=== PATIENT | female | born 1970 | race American Indian/Alaskan Native ===

== ENCOUNTER 2021-12-03 16:32 | Outpatient (CLI) | payer OTHER, SELFPAY ==
--- NOTE | ~2021-12-03 | MM_ITS ---
EXAMINATION: MM screening skyla BI w gomez HISTORY: Screening TECHNIQUE: Craniocaudal and mediolateral oblique 3-D tomosynthesis images were obtained and synthetic 2-D images were generated. CAD analysis was submitted and interpreted. COMPARISON: No prior mammogram is available for comparison at this institution. BREAST PARENCHYMAL COMPOSITION: The breasts are heterogeneously dense, which may obscure small masses . FINDINGS: There is no evidence of suspicious mass, calcification, or architectural distortion to sugg est malignancy in either breast. There has been no suspicious interval change. IMPRESSION: 1. No mammographic evidence of malignancy. 2. Recommend routine screening mammography in one year. BI-RADS Category 1: Negative Reviewed, dictated and finalized at location A.
== END 2021-12-03 16:33 | disposition home or self-care (01) ==
LOC: ANHIMG 16:35
PROVIDERS: PCP Internal Medicine Infectious Disease; Visit Provider Obstetrics & Gynecology
DX: Z12.31 Encounter for screening mammogram for malignant neoplasm of breast (principal)
CPT/HCPCS: 77063; 77067

== ENCOUNTER 2022-12-31 16:30 | Outpatient (CLI) | payer OTHER, SELFPAY ==
--- NOTE | ~2022-12-31 | MM_ITS ---
EXAMINATION: MM screening skyla BI w gomez HISTORY: Screening mammogram TECHNIQUE: Craniocaudal and mediolateral oblique 3-D tomosynthesis images were obtained and synthetic 2-D images were generated. CAD analysis was submitted and interpreted. COMPARISON: 12/03/2021 BREAST PARENCHYMAL COMPOSITION: There are scattered areas of fibroglandular density. FINDINGS: No suspicious mass, calcification, or architectural distortion are identified in either aniket ast to suggest malignancy. There has been no suspicious interval change. IMPRESSION: 1. No mammographic evidence of malignancy. 2. Recommend routine screening mammography in one year. BI-RADS Category 1: Negative Reviewed, dictated and finalized at location A.
== END 2022-12-31 16:31 | disposition home or self-care (01) ==
LOC: ANHIMG 16:34
PROVIDERS: PCP Internal Medicine Infectious Disease; Visit Provider Obstetrics & Gynecology
DX: Z12.31 Encounter for screening mammogram for malignant neoplasm of breast (principal)
CPT/HCPCS: 77063; 77067

== ENCOUNTER 2024-02-24 15:07 | Outpatient (CLI) | payer OTHER, SELFPAY ==
--- NOTE | ~2024-02-24 | MM_ITS ---
EXAMINATION: MM screening skyla BI w gomez HISTORY: Screening mammogram TECHNIQUE: Craniocaudal and mediolateral oblique 3-D tomosynthesis images were obtained and synthetic 2-D images were generated. CAD analysis was submitted and interpreted. COMPARISON: 12/31/2022, 12/03/2021 BREAST PARENCHYMAL COMPOSITION:Not Dense. There are scattered areas of fibroglandular density. FINDINGS: No suspicious mass, calcification, or architectural distortion are identified in either aniket ast to suggest malignancy. There has been no suspicious interval change. IMPRESSION: No mammographic evidence of malignancy. Recommend routine screening mammography in one year. BI-RADS Category 1: Negative Reviewed, dictated and finalized at location .
== END 2024-02-24 15:08 | disposition home or self-care (01) ==
PROVIDERS: PCP Internal Medicine Infectious Disease; Visit Provider Nurse Practitioner
DX: Z12.31 Encounter for screening mammogram for malignant neoplasm of breast (principal)
CPT/HCPCS: 77063; 77067

== ENCOUNTER 2025-02-26 15:39 | Outpatient (CLI) | payer OTHER, SELFPAY ==
--- NOTE | ~2025-02-26 | MM_ITS ---
EXAMINATION: MM screening skyla BI w gomez HISTORY: Screening mammogram TECHNIQUE: Craniocaudal and mediolateral oblique 3-D tomosynthesis images were obtained and synthetic 2-D images were generated. CAD analysis was submitted and interpreted. COMPARISON: 02/24/2024, 12/31/2022, 12/03/2021 BREAST PARENCHYMAL COMPOSITION:Not Dense. There are scattered areas of fibroglandular density. FINDINGS: No suspicious mass, calcification, or architectural distortion are identified in either aniket ast to suggest malignancy. There has been no suspicious interval change. IMPRESSION: No mammographic evidence of malignancy. Recommend routine screening mammography in one year. BI-RADS Category 1: Negative Reviewed, dictated and finalized at location .
--- OUTSIDE RECORDS SUMMARY | 2025-02-26 15:43 | XMS_ITS | Clinical Summary ---
Author Organization [facility] Address [address] [place] [id number] Care Team Providers Care Confectionery Laboratory Manager Name Role Phone Kev Brown MD Primary Care Provider [phone] Social History Tobacco Use Types Packs/Day Years Used Date Smoking Tobacco: Never Assessed Comments Unknown Sex and Gender Information Value Date Recorded Sex Assigned at Not on file Legal Sex Female 7:37 PM CDT Gender Identity Not on file Sexual Orientation Not on file Plan of Treatment Health Maintenance Due Date Last Done Comments Cervical Cancer Screening Pa p Smear (Age 30 to 64) Every 3 Years 1971 Colorectal Cancer Screening Colonoscopy (10 Years) 1971 Annual Physical 1974 Hepatitis C 1989 DTaP, Tdap and Td Vaccines ( 1 - Tdap) 1990 Hepatitis B Vaccines (1 of 3 - 19+ 3-dose series) 1990 Cervical Cancer Screening Pa p with HPV Testing (Age 30 to 64) Every 5 Years 2001 Cervical Cancer Screening with HPV 2001 Mammogram Screening 08/18/2019 08/18/2017 Pneumococcal Vaccine: 50+ Ye ars (1 of 1 - PCV) 2021 Zoster Vaccines (1 of 2) 2021 COVID-19 Vaccine ( - 2023-2 5 season) 2024 Meningococcal B Vaccine Aged Out No l onger eligible based on patient's age to complete this topic Meningococcal Vaccine Aged Out No manoj santos eligible based on patient's age to complete this topic RSV Immunizations Under 20 Months Aged Out No longer eligible based on patient's age to complete this topic Procedures Procedure Name Priority Date/Time Associated Diagnosis Comments MG SCREENING RAYSHAWN DIGI Routine 08/18/2017 5:45 PM DESIGN ASSEMBLER Screening breast examination from Last 3 Months or Most Recently Relevant to Health Maintenance Results * MG SCREENING RAYSHAWN DIGI (08/18/2017 5:45 PM DESIGN ASSEMBLER) Anatomical Region Laterality Modality Breast Bilateral Mammography 08/18/2017 9:33 PM DESIGN ASSEMBLER Impressions 08/18/2017 9:34 PM DESIGN ASSEMBLER =====IMPRESSION:===== No mammographic findings suggestive of malignancy. ASSESSMENT: ACR BI-RADS Category 2 - Benign. RECOMMENDATION: 1: Routine screening mammogram bilateral in 1 year COMMENTS: Narrative 08/18/2017 9:34 PM DESIGN ASSEMBLER EXAMINATION: Digital bilateral screening mammogram EXAM DATE/TIME: 08/13/2017 12:00 AM REASON FOR EXAM: No current breast complaints COMPARISON: 07/06/2015 TECHNIQUE: Digital screening mammography of both breasts was performed. This study was read with the assistance of a computer-aided detection system. TISSUE DENSITY: The breast tissue is heterogeneously dense. FINDINGS: No suspicious masses, malignant appearing calcifications, skin thickening or other abnormalities are present. No significant change from the prior exam. us Provider Non-Staff MAMMO Final Result from Last 3 Months or Most Recently Relevant to Health Maintenance Insurance [facility] Care Teams Confectionery Laboratory Manager Relationship Specialty Start Date End Date Kev Brown MD PCP - General INTERNAL MEDICINE 08/18/17
--- OUTSIDE RECORDS SUMMARY | 2025-02-26 15:43 | XMS_ITS | Clinical Summary ---
Author Organization [facility] Address [address] [place] [address] Phone Care Team Providers Care Therapist Rrt Name Role Phone Kev Brown MD Primary Care Provider Social History Tobacco Use Types Packs/Day Years Used Date Smoking Tobacco: Never Assessed Comments No Sex and Gender Information Value Date Recorded Sex Assigned at Not on file Legal Sex Female 3:17 PM CDT Gender Identity Not on file Sexual Orientation Not on file Plan of Treatment Health Maintenance Due Date Last Done Comments Hepatitis C Virus (HCV) Screening 1971 TdaP Immunization 1971 Hepatitis B Immunization (1 of 3 - 19+ 3-dose series) 1990 Colonoscopy 02/29/2016 Colorectal Cancer Screening 02/29/2016 Cologuard 2021 Immunochemical Fecal Occult Blood 2021 Pneumococcal Immunization (5 0+ years) (1 of 1 - PCV) 2021 Zoster Immunization (1 of 2) 2021 SARS-COV-2 Immunization (1 - 2023-25 season) 2024 Influenza Immunization (Seas on Ended) 2025 Respiratory Syncytial Virus (RSV) Immunization (Adult) (1 - 1-dose 75+ series) 2046 Discussion re Starting/Frequ ency of Mammograms Discontinued 07/14/2016 Mammogram Discontinued 07/14/2016 Human Papillomavirus (HPV) Immunization Aged Out No longer eligible b ased on patient's age to complete this topic Meningococcal Immunization (ACWY) Aged Out No longer eligible based on patient's age to complete this topic Rotavirus Immunization Aged Out No lo nger eligible based on patient's age to complete this topic Procedures Procedure Name Priority Date/Time Associated Diagnosis Comments YUE SCREENING BILATERAL DIGITAL W CAD Routine 07/14/2016 4:02 PM EMERGENCY MEDICINE PHYSICIAN ASSISTANT Visit for screening mammogram from Last 3 Months or Most Recently Relevant to Health Maintenance Results * YUE SCREENING BILATERAL DIGITAL W CAD (07/14/2016 4:02 PM EMERGENCY MEDICINE PHYSICIAN ASSISTANT) Anatomical Region Laterality Modality breast Bilateral Mammography 07/14/2016 3:41 PM EMERGENCY MEDICINE PHYSICIAN ASSISTANT Narrative 07/28/2016 7:32 AM EMERGENCY MEDICINE PHYSICIAN ASSISTANT - YUE SCREENING BILATERAL DIGITAL W CAD BILATERAL DIGITAL SCREENING MAMMOGRAM WITH CAD WITH MEDIOLATERAL OBLIQUE CRANIOCAUDAL: 07/14/2016 The study was acquired using digital technology and interpreted from soft copy. Current study was also evaluated with ICAD version 7.2. CLINICAL: Routine screening. Patient has no complaints. No personal history of cancer. No family history of breast cancer. COMPARISONS: Comparison is made to exam dated: 07/06/2015 [facility]. BREAST TISSUE:The tissue of both breasts is heterogeneously dense. This may lower the sensitivity of mammography. FINDINGS: No significant masses, calcifications, or other findings are seen in either breast. There has been no significant interval change. IMPRESSION: BI-RAD 1 NEGATIVE There is no mammographic evidence of malignancy. A 1 year screening mammogram is recommended. The patient has been or will be contacted. The patient will be entered into a reminder system with a target due date of 1 year for her next screening exam. Electronically signed by: Bruna menard/geovanna:07/27/2016 09:33:24 Retirement Officer: Mary Milan (Manny), [facility] letter sent: Normal Exam Reading location: [facility] BI-RADS: 1 Negative Procedure Note Bruna Iverson MD - 07/28/2016 - YUE SCREENING BILATERAL DIGITAL W CAD BILATERAL DIGITAL SCREENING MAMMOGRAM WITH CAD WITH MEDIOLATERAL OBLIQUE CRANIOCAUDAL: 07/14/2016 The study was acquired using digital technology and interpreted from soft copy. Current study was also evaluated with ICAD version 7.2. CLINICAL: Routine screening. Patient has no complaints. No personal history of cancer. No family history of breast cancer. COMPARISONS: Comparison is made to exam dated: 07/06/2015 [facility]. BREAST TISSUE:The tissue of both breasts is heterogeneously dense. This may lower the sensitivity of mammography. FINDINGS: No significant masses, calcifications, or other findings are seen in either breast. There has been no significant interval change. IMPRESSION: BI-RAD 1 NEGATIVE There is no mammographic evidence of malignancy. A 1 year screening mammogram is recommended. The patient has been or will be contacted. The patient will be entered into a reminder system with a target due date of 1 year for her next screening exam. Electronically signed by: Bruna menard/geovanna:07/27/2016 09:33:24 Retirement Officer: Mary Milan (R), [facility] letter sent: Normal Exam Reading location: [facility] BI-RADS: 1 Negative Kev Brown MD IMG MAMMO ORDERABLES Fi nal Result from Last 3 Months or Most Recently Relevant to Health Maintenance Care Teams Therapist Rrt Relationship Specialty Start Date End Date Kev Brown MD [address] [place] [address] PCP - General Internal Medicine 07/03/16
--- OUTSIDE RECORDS SUMMARY | 2025-02-26 15:43 | XMS_ITS | Data Portability ---
Author Organization [facility], [place] Address [address] [place] [address] Assessment Encounter Date Assessment Date Assessment LastModified by Organization Details LastModified Time 11/24/2021 11/24/2021 healthy female exam/menopause patient declines std testing pap deferred; pt worried [facility] will not pay for it ,unsure when her last was. Will request records mammogram ordered colonoscopy referral placed by PCP recently dexa baseline around 61 Encouraged weight bearing exercise and 1500mg daily of Calcium with Vitamin D FU 1 year or prn [email or web address] Not available 11/24/2021 18:04:57 11/27/2022 11/27/2022 normal breast exam suspect atrophic vaginitis, pt declines exam since HD will not pay for it. discussed she can choose to schedule appt to [facility] pay for exam and estrogen cream script if she wants. pt requests mammo script for next month FU 1 year or prn [email or web address] Not available 11/27/2022 16:19:47 12/16/2023 12/16/2023 Annual gynecological exam performed. Patient will come back in a year unless there are new symptoms. [email or web address] Not available 12/16/2023 17:04:22 02/21/2025 02/21/2025 Annual gynecological exam performed. Patient will come back in a year unless there are new symptoms. [email or web address] Not available 02/21/2025 17:17:24 Plan of Treatment Reminders Order Date Submit Date Provider Last Modified By Organization Details Last Modified Time Details Appointments None recorded. Lab None recorded. Referral None recorded. Procedures None recorded. Surgeries None recorded. Imaging MAMMO, screening, digital, bilateral [address] (Mammography) , [address], [place], [address], 5 17:52:20 MAMMO, screening, digital, bilateral 2023 024 [facility], [address], [address] [address], [place], [address], 4 13:55:41 Medication Orders None recorded. Patient TargetsNo targets recorded. Patient InstructionsNo instructions recorded. Reason for Referral None Reported. Results Created Date Observation Date Name Description Value Unit Range Abnormal Flag Note LastModifiedBy Organization Detail LastModifiedTime 12/05/1912/03/2021 MAMMO , scree chucho, bilat eral No observ ation record ed. [address] [address], [place], [address], 02/25/2023 14:10:02 01/02/20 23 12/31/2022 MAMMO , scree chucho, bilat eral No observ ation record ed. [address] [address], [place], [address], 06/28/2023 14:21:36 02/25/20 24 02/24/2024 MAMMO , scree chucho, digit al, bilat eral No observ ation record ed. [address], [address], 03/13/2024 04:01:59 Result Notes None recorded. Problems Name Problem SNOMED Code Status Onset Date Resolution Date Notes Provider Name and Address Organization Details Recorded Time Genital herpes simplex 93700423 Active 022 Shannon Trinh MD [address], [place], [address], [facility] 2 18:03:12 Problem Notes None recorded. Procedures Surgical History Date Name Laterality Status Provider Name and Address Organization Details Recorded Time Date of Last Mammogram completed Inna Delacruz [facility] 02/21/2025 17:31:04 2 Date of Last Colonoscopy completed [facility] 11/27/2022 15:57:20 6 Carpal tunnel surgery completed [facility] 11/24/2021 17:25:13 3 delivery completed [facility] 11/24/2021 17:25:28 9 delivery completed [facility] 11/24/2021 17:25:43 Imaging Results None recorded. Procedure Notes None recorded. Medical Equipment None Reported. Allergies No known drug allergies Medications Name Sig Start Date Stop Date Status Note LastModified by Organization Details LastModified Time meloxicam 15 mg tablet TAKE 1 TABLET BY MOUTH ONCE DAILY DIRECTED FOR 15 DAYS 02/21 completed Not Available Not Available Not Available sulfamethox azole 800 mg-trimetho prim 160 mg tablet TAKE 1 TABLET BY MOUTH EVERY 12 HOURS DIRECTED FOR 3 DAYS 12/15 completed Not Available Not Available Not Available hydrochloro thiazide 12.5 mg tablet TAKE 1 TABLET BY MOUTH ONCE DAILY active Not Available Not Available No t Available Vitals Date Recorded Body weight Body mass index (BMI) Body height Systolic blood pressure Diastolic blood pressure Provider Name and Address Organization Details Last Updated DateTime 11/24/2021 82496.35 g 23.4 kg/m2 147.32 cm 115 mm[Hg] 77 mm[Hg] [facility] 2 17:35:51 Date Recorded Body height Body mass index (BMI) Body weight Systolic blood pressure Diastolic blood pressure Provider Name and Address Organization Details Last Updated DateTime 11/27/2022 147.32 cm 24 kg/m2 92457.12 g 115 mm[Hg] 80 mm[Hg] [facility] 3 15:56:16 Date Recorded Body height Body mass index (BMI) Body weight Systolic blood pressure Diastolic blood pressure Provider Name and Address Organization Details Last Updated DateTime 12/16/2023 147.32 cm 24.2 kg/m2 46774.71 g 117 mm[Hg] 75 mm[Hg] Vera Aranda [facility] 4 16:37:29 Date Recorded Body height Body mass index (BMI) Body weight Systolic blood pressure Diastolic blood pressure Systolic blood pressure Diastolic blood pressure Provider Name and Address Organization Details Last Updated DateTime 5 147.32 cm 23.7 kg/m2 24476.3 7 g 128 mm[Hg] 78 mm[Hg] 122 mm[Hg] 78 mm[Hg] Inna Delacruz [facility] 5 17:53:13 Social History Question Answer Notes LastModified by [email or web address] Details LastModified Time Tobacco Smoking Status Never Smoker [facility] 11/24/2021 17:25:55 Has Tobacco Cessation Counseling Been Provided? No Information not available 11/24/2021 Sex: Unknown Functional Status Question Answer Note LastModified by [employer] Details LastModified Time Do you use any illicit or recreational drugs? No Information not available 11/24/2021 Do you or have you ever used any other forms of tobacco or nicotine? No Information not available 11/24/2021 What is your level of alcohol consumption? None Information not available 11/24/2021 Mental Status None recorded. Family History Relationship Description Onset Age of this Age Resolved Age Notes LastModified by Organization Details LastModified Time Mother Diabetes mellitus [email or web address] Not available 2021 17:26:55 Maternal Aunt Diabetes mellitus [email or web address] Not available 2021 17:26:55 Medical History Condition Response Allergies (Food, seasonal, environmental ) N Other N Blood Transfusion N Drug/Latex Allergies/Reactions N Breast Cancer N Dermatologic Disorders N Lung Disease N Defects or Inherited Disease N Breast Problem N Gestational Diabetes N Hematologic disorders N Anesthesia Complications N History of STI N Deep Vein Thrombosis N Polycystic ovary syndrome N Anxiety Disorder N Autoimmune disease N Arthritis Y Infertility N Polyps N Acid Reflux (GERD) N History of abnormal pap N Cancer N Stroke N Varicosities N Neurologic/Epilepsy N Endometriosis N High Cholesterol N Headaches N Fibromyalgia N Kidney Disease N Heart Problems N Kidney or Bladder Problems N Thyroid Problems N GI Problems N Eating Disorder N Anemia N Art (IVF or FET) N Psychiatric Illness N Ovarian Cancer N Diabetes N Pulmonary (TB, Asthma) N Hepatitis/Liver Disease N No Past Medical History N Eczema N Urinary Tract Infection N Abuse/Domestic Violence N Asthma N Trauma/Violence N Depression/ depression N Heart Disease N Pre-Eclampsia N Hypertension Y Osteoporosis N Thrombophilias N Gynecological History Statement/Question Response Date of Last Mammogram 02/24/2024 Date of Last Colonoscopy 08/30/2021 Date of LMP Sexually Active? Y On BCP's at Conception? N STIs/STDs N HPV Vaccine N Date of Last Pap Smear Sexual Problems? N Obstetrics History GPAL:G 2 P 2 0 0 2 Type Value Full Term 2 Living 2 Total 2 Past Encounters Encounter ID Performer Location Encounter Start Date Encounter Closed Date Diagnosis/Indication Diagnosis SNOMED-CT Code Diagnosis ICD10 Code Diagnosis Note [id number] Shannon Trinh MD [place] [address],[facility] [place] [address] 11/24/2021 17:02:56 11/24/2021 18:27:21 Gynecologic examination 86920330 Z01.419 [id number] Shannon Trinh MD [place] [address],[facility] [place] [address] 11/27/2022 15:24:54 11/27/2022 16:22:05 Screening for malignant neoplasm of breast 365261000 Z12.39 [id number] ANGELA Cruz [place] [address],[facility] [place] [address] 12/16/2023 16:34:33 12/16/2023 17:14:39 Gynecologic examination 41038939 Z01.419 WWEpaps Q5 yrs per asccp guidelines unless otherwise indicated, due next 2025will obtain recordsdec lined STI screenmamm ogram order givencolon oscopy UTDroutine labs - PCPRTC in 1 yr or sooner if needed Take Calcium with Vitamin D daily.Do monthly self breast exams.It is advised to get annual flu shot in the fall and she could obtain at [facility] or [facility] take care clinic. If you haven't received the Tdap vaccine in the last 10 years you should obtain one as well.Have mammogram yearly, colonoscop y every 5-10 years for most pts depending on findings and history.En josiane in regular exercise. Avoid tobacco and illicit drugs. This lifestyle behavior pattern will lead to less health conditions and longer life span. If BMI greater than 25 dietary consult advised.Qu estions have been answered. Patient appears to understand instructio ns, but if you have any further questions call or respond to this email Screening for malignant neoplasm of breast 203965144 Z12.39 [id number] Fredi Peng MD [place] [address] [address] 02/21/2025 17:15:18 02/21/2025 17:52:20 Gynecologic examination 10936605 Z01.419 Annual gynecologi anthony exam performed. Patient will come back in a year unless there are new symptoms. Suggest Calcium with Vitamin D if not eating in diet. Patient advised to get annual flu shot. Recommend yearly physicals and perform monthly breast exams. Genetic testing is available for patients with family history of cancer. Engage in safe sexual practices, use condoms. Encouraged to have daily exercise. Avoid tobacco and illicit drugs, moderation of alcohol. If BMI greater than 25 dietary consult advised. If you have any questions please call or email. mammogram- order given, pt to schedule colon cancer screening - UTP PCP Pap smear- paps Q5 yrs per asccp guidelines unless otherwise indicated, due next 2025 laboratory evaluation - PCP STI testing - declined Screening for malignant neoplasm of breast 913191243 Z12.39 Health Concerns Section Related Observation LastModified by Organization Detai ls LastModified Time None Recorded Concern Status LastModified by Organization Details LastModified Time None Recorded Advance Directives Directive None Recorded Payers Insurance Date Sequence Insurance Name Policy Number Policy Dutta Covered Member ID Dutta Member ID Guarantor Name 11/24/2021 [facility] Loreto Reardon [id number] Loreto Reardon Notes Date Note Type Note Provider Name and Address Organization Details Recorded Time 11/24/2021 text/html Patient is a 51y o who presents for an annual exam. Menopause around 48, no bleeding since. No concerns. last pap-uncertain mammo-2020 normal, has appt colonoscopy-none, PCP ordered dexa-none menopause-y sexually active-n seatbelts-y exercise-y depression-denies domestic violence-denies tobacco-n concerns- Shannon Trinh MD [address], [place], [address], [facility] 11/24/2021 18:05:23 11/27/2022 text/html Per [facility] HD only may have breast exam, no pelvic or pap.pt complains of dryness with sex, irritation of vagina other times too. Shannon Trinh MD [address], [place], [address], [facility] 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 malena bypatient.Menopausal Symptoms:no menopausal symptoms; normal vaginal lubrication Vaginal Bleeding:history of menopause having occurred; no history of post menopausal bleeding Urinary Symptoms:no hematuria; no incontinence; no nocturia; no urinary frequency Vulva:no genital lesion; no vulvar atrophy Vagina:normal vaginal discharge; no vaginal atrophy Breast:no breast lump; no nipple discharge; no breast pain Sexual Complaints:no sexual complaints Psychological Symptoms:no depression; no anxiety Preventive Measures:encourage regular mammograms starting age 40; encourage self breast examination; encourage regular exercise; encourage no tobacco use; mammogram performed within the past yearNotes:53yo [id number] usal since around age 45no h/o abnormal papslast pap she thinks was 2020 - normal per pt. Told by [facility] breast and cervical CA program she is due in 2025 for next papmammogram last olonoscopy 2021 medical hx: HTN, arthritis ANGELA Cruz [address], [place], [address], [facility] 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 malena bypatient.Menopausal Symptoms:no menopausal symptoms; normal vaginal lubrication Vaginal Bleeding:history of menopause having occurred; no history of post menopausal bleeding Urinary Symptoms:no hematuria; no incontinence; no nocturia; no urinary frequency Vulva:no genital lesion; no vulvar atrophy Vagina:normal vaginal discharge; no vaginal atrophy Breast:no breast lump; no nipple discharge; no breast pain Sexual Complaints:no sexual complaints Psychological Symptoms:no depression; no anxiety Preventive Measures:encourage regular mammograms starting age 40; encourage self breast examination; encourage regular exercise; encourage no tobacco use Patient presents for annual well woman exam. Patient denies concerns today. Inna Delacruz [facility] 02/21/2025 17:53:15 OBGyn Episode Ob Episode Information Episode Created Date Number of Fetuses Patient Bloodtype Patient rh Status Prepregnancy Weight lbs Domestic Partner Domestic Partner Phone Father Name Field Sampling Technician Status 11/25/19 22 1 CLOSED Fetus Data First Name Last Name Admitted to NICU Weight (g) Sex Living Outcome Pediatric Complications Fetus ID Race Codes Race Delivery Type M [id number] Repeat Deepak Calculation Initial Deepak Date Initial Exam Date Initial Exam Provider Initial Ultrasound Date Last Menstrual Period Date Ultra Sound Weeks Gestation 0 Eighteen To Twenty Week Deepak Update Ultra Sound Date Fundal Height At Umbil Quickening Date Ultra Sound Latest Weeks Gestation Final Deepak Confirmed By Final Deepak Confirmed Date Final Deepak Date Ultra Sound Latest Days Gestation 0 0 Menstrual History Last Menstrual Date Menses Monthly On Bcp Conception Prior Menses Frequency Hcg Plus Date Menarche Onset Age Delivery Information Delivery Date Delivery Type Labor Anesthesia Weeks Gestation Incision Type Labor Labor Length Hrs Delivered By Post Complications Tubal Sterilization Discharge Date Comments 3 Discharge Information Feeding Method Contraceptive Method Maternal HG B and HCT Levels Ob Episode Information Episode Created Date Number of Fetuses Patient Bloodtype Patient rh Status Prepregnancy Weight lbs Domestic Partner Domestic Partner Phone Father Name Field Sampling Technician Status 11/25/19 22 1 CLOSED Fetus Data First Name Last Name Admitted to NICU Weight (g) Sex Living Outcome Pediatric Complications Fetus ID Race Codes Race Delivery Type F [id number] Primary Deepak Calculation Initial Deepak Date Initial Exam Date Initial Exam Provider Initial Ultrasound Date Last Menstrual Period Date Ultra Sound Weeks Gestation 0 Eighteen To Twenty Week Deepak Update Ultra Sound Date Fundal Height At Umbil Quickening Date Ultra Sound Latest Weeks Gestation Final Deepak Confirmed By Final Deepak Confirmed Date Final Deepak Date Ultra Sound Latest Days Gestation 0 0 Menstrual History Last Menstrual Date Menses Monthly On Bcp Conception Prior Menses Frequency Hcg Plus Date Menarche Onset Age Delivery Information Delivery Date Delivery Type Labor Anesthesia Weeks Gestation Incision Type Labor Labor Length Hrs Delivered By Post Complications Tubal Sterilization Discharge Date Comments 9 Discharge Information Feeding Method Contraceptive Method Maternal HG B and HCT Levels
--- OUTSIDE RECORDS SUMMARY | 2025-02-26 15:43 | XMS_ITS | Clinical Summary ---
Author Organization [facility] Address [address] [address] Care Team Providers Care Deicer Repairer Pneumatic Name Role Phone Kaye Reardon MD Primary Care Provider [phone] Source Comments [facility],non-owned Affiliates and Associated Physician Practices is amultiple site organization consisting of ambulatory clinics and hospital sitesin [place], [place], [place] and [place]. This disclosure is being madepursuant to the Care Everywhere program and may not contain all information available regarding this patient. Last updated 18.[facility] Allergies No known active allergies Medications * Be aware that medications may not be up to date on this document. Alwaysverify current medications with the patient. 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 Mass of soft tissue 06/28/2020 Resolved Problems Problem Noted Date Diagnosed Date Resolved Date Upper respiratory infection 08/12/2022 08/26/2022 Social History Tobacco Use Types Packs/Day Years Used Date Smoking Tobacco: Never Smokeless Tobacco: Never Tobacco Cessation:Counseling Given: Not Answered Comments Unknown Sex and Gender Information Value Date Recorded Sex Assigned at Not on file Legal 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 Gender Identity Not on file Sexual Orientation Not on file Plan of Treatment Health Maintenance Due Date Last Done Comments DONALD (AGES 45-75) - COLON CA SCREENING 1971 COLON MONITORING 1971 COLONOSCOPY - COLON CA SCREENING 1971 CT COLONOGRAPHY - COLON CA SCREENING 1971 Colorectal Cancer Screening 1971 FIT - COLON CA SCREENING 1971 FLEX SIG - COLON CA SCREENING 1971 LIPID TESTING 1971 HIV SCREENING 1986 HEPATITIS C SCREENING 02/23/1989 DTAP/TDAP/TD VACCINES (1 - Tdap) 1990 HEPATITIS B VACCINE (1 of 3 - 19+ 3-dose series) 1990 PAP SMEAR 02/29/1992 MAMMOGRAM 08/18/2019 08/18/2017 PNEUMOCOCCAL VACCINE 50+ (1 of 1 - PCV) 2021 ZOSTER VACCINE (1 of 2) 2021 COVID-19 VACCINE (4 - season) 2024 09/06/2021, 11/30/2020, 11/10/2020 DEPRESSION SCREENING 08/30/2024 INFLUENZA VACCINE (Season Ended) 2025 06/13/2021, 06/07/2020, 07/03/2019, Additional history exists HIB VACCINE Aged Out No longer eligi ble based on patient's age to complete this topic HPV VACCINE Aged Out No longer eligi ble based on patient's age to complete this topic MENINGOCOCCAL (Group B) VACCINE SHARED DECISION-MAKING Aged Out No longer eligible based on patient's age to complete this topic MENINGOCOCCAL GROUPS A/C/Y/W VACCINE Aged Out No longer eligible based on patient's age to complete this topic Care Teams Deicer Repairer Pneumatic Relationship Specialty [place] [id number] [facility] [address] PCP - General 03/17/22
--- OUTSIDE RECORDS SUMMARY | 2025-02-26 15:43 | XMS_ITS | Data Portability ---
Author Organization [facility] Willian Spencer Address [address] [place] [address] Care Team Providers Care Medical Technologist Hematology Name Role Phone KEV MOLINA Primary Care Provider IVELISSE MORSE Box Gluer Assessment No assessment recorded. Plan of Treatment Reminders Order Date Submit Date Provider Last Modified By Organization Details Last Modified Time Details Appointments None recorded. Lab urinalysis macro (dipstick) panel, urine 2024 025 [place], [address], [place], [address], 5 15:10:43 CMP, serum or plasma 2024 025 [facility], [address], [address], [place], [address], 5 15:10:41 CBC w/ auto diff 2024 025 [facility], [address], [address], [place], [address], 5 15:10:45 lipid panel, serum 2024 025 [facility], [address], [address], [place], [address], 5 15:10:40 lipoprotei n a, qn, serum 2024 025 [facility], [address], [address], [place], [address], 5 15:10:39 TSH, ultra-sens itive, serum 2024 025 [facility], [address], [address], [place], [address], 5 15:10:44 urinalysis , dipstick 2023 024 [facility], [address], [address], [place], [address], 4 10:15:20 CBC w/ auto diff 2023 024 [facility], [address], [address], [place], [address], 4 10:15:22 CMP, serum or plasma 2023 024 [facility], [address], [address], [place], [address], 4 10:15:18 lipid panel, serum 2023 024 [facility], [address], [address], [place], [address], 4 10:15:17 vitamin D, 25-hydroxy , total, serum 2023 024 [facility], [address], [address], [place], [address], 4 10:15:23 TSH, ultra-sens itive, serum 2023 024 [facility], [address], [address], [place], [address], 4 10:15:21 TSH, ultra-sens itive, serum 2022 023 [facility], [address], [address], [place], [address], 3 06:12:42 basic metabolic 1998 panel, serum or plasma 2022 023 [facility], [address], [address], [place], [address], 3 12:47:40 hemoglobin + hematocrit , blood 2022 023 [facility], [address], [address], [place], [address], 3 19:09:11 lipid panel, serum 2022 023 [facility], [address], [address], [place], [address], 3 19:09:10 CBC w/ auto diff 2021 022 [facility], [address], [address], [place], [address], 2 07:14:05 lipid panel, serum 2021 022 [facility], [address], [address], [place], [address], 2 07:14:06 BMP, serum or plasma - BMP is pre-proced ural test for screening for malignant neoplasm of colon [facility]22 [facility] [address] [place], [address], 2 08:31:33 CBC - CBC is pre-proced ural test for screening for malignant neoplasm of colon 2021 022 [facility] (Lab), [address], [place], [address], 2 08:31:33 Referral ophthalmol ogist referral 2024 025 [facility], [address], [place], [address], 5 16:23:[address] referral - Erythrocyt osis 2021 022 [email or web address] Evgeny Mendoza MD, [address] [place], [address], 3 10:38:12 orthopedic surgeon referral - Trigger finger, right hand. Pain left hand 2021 022 [email or web address] [facility], [address], [place], [address], 3 11:47:17 dermatolog ist referral - Lesion inferior to the left lower eyelid 2021 022 YAMILETH Terrell MD ([facility], Dermatology), [address] [facility], [place], [address], 2 13:05:33 Procedures colonoscop y screening (PROC) 2021 [facility] [address] [place], [address], 2 12:39:17 Surgeries None recorded. Imaging MAMMO, screening, bilateral 2023 024 YAMILETH [facility] (Rad), [address], [place], [address], 4 08:03:45 MAMMO, screening, bilateral 2022 023 YAMILETH [facility]), [address], [place], [address], 3 11:08:21 XR, hand - Pain MCP joints 2021 022 [facility] ([facility]), [address] [place], [address], 2 16:19:01 Medication Orders meloxicam 15 mg tablet 2024 025 [facility], [address] [place] [address], [address], 5 16:54:27 hydrochlor othiazide 12.5 mg tablet 2023 024 [facility], [address] [place] [address], [address], 4 16:36:50 hydrochlor othiazide 12.5 mg tablet 2022 023 [facility], [address] [place] [address], [address], 3 17:05:33 Dulcolax (bisacodyl ) 5 mg tablet,del ayed release 2021 022 [facility], [address] [place] [address], [address], 2 15:59:37 Miralax 17 gram/dose oral powder 2021 022 [facility], [address] [place] [address], [address], 2 15:59:39 Patient TargetsNo targets recorded. Patient Instructions Encounter Date Encounter Id Patient Instructions Last Modified By Organization Details Last Modified Time 01/14/2022 [id number] RL About Your Colonoscopy 1 Day Prep tabatha Not available 01/14/2022 17:28:30 03/13/2022 [id number] polycythemia: care instructions oajao Not available 03/13/2022 16:15:33 high cholesterol : care instructions oajao Not available 03/13/2022 16:16:25 skin lesions: care instructions oajao Not available 03/13/2022 16:10:19 [facility] Dermatology Orthopedics Follow up in 6 months Addendum Hematology oajao Not available 03/13/2022 16:15:54 11/03/2022 [id number] hot flashes during menopause: care instructions oajao Not available 11/03/2022 17:06:49 learning about breast cancer screening oajao Not available 11/03/2022 17:04:14 Labs MMG Follow up in 6 months and PRN oajao Not available 11/03/2022 17:05:51 11/04/2023 [id number] mammogram: about this test oajao Not available 11/04/2023 16:28:57 learning about high blood pressure oajao Not available 11/04/2023 16:36:44 Labs MMG Follow up in 6 months and PRN oajao Not available 11/04/2023 18:22:33 09/07/2024 [id number] abnormal weight loss: care instructions oajao Not available 09/07/2024 16:56:33 Labs Follow up i n 6 months Ophthalmology oajao Not available 09/07/2024 16:56:58 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 Pain left hand Trigger finger, right hand. Pain left hand Referring Physician: Kev Molina Internal Medicine, Encounter Date: 03/13/2022 Drill Sergeant Referral for Visual impairment Annual eye exam please Referring Physician: Kev Molina Internal Medicine, Encounter Date: 09/07/2024 Results Created Date Observation Date Name Description Value Unit Range Abnormal Flag Note LastModifiedBy Organization Detail LastModifiedTime 01/15/20 22 01/14/2022 CBCON LY - WITHO UT AUTO DIFF WBC 6.0 K/uL 3.4-10 .8 Not Available [facility] (Lab) [address] [place], [address], 01/14/2022 20:43:22 01/15/20 22 01/14/2022 CBCON LY - WITHO UT AUTO DIFF red blood count 4.8 M/uL 4.2-5. 4 Not Available [facility] (Lab) [address], [place], [address], 01/14/2022 20:43:22 01/15/20 22 01/14/2022 CBCON LY - WITHO UT AUTO DIFF hemoglobin 15.7 g/dL 11.5-1 5.5 high Not Available [facility] (Lab) [address] [facility], [place], [address], 01/14/2022 20:43:22 01/15/20 22 01/14/2022 CBCON LY - WITHO UT AUTO DIFF hematocrit 44.1 % 36.0-4 8.0 Not Available [facility] (Lab) [address] [facility], [place], [address], 01/14/2022 20:43:22 01/15/20 22 01/14/2022 CBCON LY - WITHO UT AUTO DIFF MCV 93 fL 80-95 Not Available [facility] (Lab) [address] [place], [address], 01/14/2022 20:43:22 01/15/20 22 01/14/2022 CBCON LY - WITHO UT AUTO DIFF MCH 33 pg 27-32 high Not Available [facility] (Lab) [address] [place], [address], 01/14/2022 20:43:22 01/15/20 22 01/14/2022 CBCON LY - WITHO UT AUTO DIFF MCHC 36 g/dL 32-36 Not Available [facility] (Lab) [address] [place], [address], 01/14/2022 20:43:22 01/15/20 22 01/14/2022 CBCON LY - WITHO UT AUTO DIFF platelets 282 K/uL 155-37 9 Not Available [facility] (Lab) [address] [place], [address], 01/14/2022 20:43:22 01/15/20 22 01/14/2022 CBCON LY - WITHO UT AUTO DIFF RDW 12.5 % 11.5-1 4.5 Not Available [facility] (Lab) [address] [facility], [place], [address], 01/14/2022 20:43:22 01/15/20 22 01/14/2022 CBCON LY - WITHO UT AUTO DIFF MPV 10.6 fL 8.9-12 .7 Not Available [facility] (Lab) [address] [facility], [place], [address], 01/14/2022 20:43:22 01/15/20 22 01/14/2022 BASIC METAB OLIC PANEL (BMP) glucose, serum 86 mg/dL 65-99 Not Available [facility] ([facility]) [address] [place], [address], 01/14/2022 20:48:17 01/15/20 22 01/14/2022 BASIC METAB OLIC PANEL (BMP) BUN 14 mg/dL 8-26 Not Available [facility] (Lab) [address] [place], [address], 01/14/2022 20:48:17 01/15/20 22 01/14/2022 BASIC METAB OLIC PANEL (BMP) creatinine, serum 0.62 mg/dL 0.50-1 .40 Not Available [facility] (Lab) [address] [place], [address], 01/14/2022 20:48:17 01/15/20 22 01/14/2022 BASIC METAB OLIC PANEL (BMP) BUN/creatnin e ratio 22.6 Not Available [facility] [address] [place], [address], 01/14/2022 20:48:17 01/15/20 22 01/14/2022 BASIC METAB OLIC PANEL (BMP) sodium, serum 143.0 mmol/ L 136.0- 144.0 Not Available [facility] (Lab) [address] [place], [address], 01/14/2022 20:48:17 01/15/20 22 01/14/2022 BASIC METAB OLIC PANEL (BMP) potassium, serum 3.8 mmol/ L 3.5-5. 3 Not Available [facility] (Lab) [address] [place], [address], 01/14/2022 20:48:17 01/15/20 22 01/14/2022 BASIC METAB OLIC PANEL (BMP) chloride, serum 103 mmol/ l 101-11 1 Not Available [facility] (Lab) [address] [place], [address], 01/14/2022 20:48:17 01/15/20 22 01/14/2022 BASIC METAB OLIC PANEL (BMP) carbon dioxide total 26.5 mmol/ L 21.0-3 2.0 Not Available [facility] (Lab) [address] [facility], [place], [address], 01/14/2022 20:48:17 01/15/20 22 01/14/2022 BASIC METAB OLIC PANEL (BMP) aniongp 17.0 mmol/ L Not Available [facility] (Lab) [address] [place], [address], 01/14/2022 20:48:17 01/15/20 22 01/14/2022 BASIC METAB OLIC PANEL (BMP) calcium, serum 9.7 mg/dL 8.2-10 .0 Not Available [facility] (Lab) [address] [place], [address], 01/14/2022 20:48:17 01/15/20 22 01/14/2022 BASIC METAB OLIC PANEL (BMP) osmol 285.0 mOsm/ L 275.0- 301.0 Not Available [facility] (Lab) [address] [place], [address], 01/14/2022 20:48:17 01/15/20 22 01/14/2022 BASIC METAB OLIC PANEL (BMP) eGFR, AM 131 mL/mi n/1.7 3 >=60 Not Available [facility] (Lab) [address] [place], [address], 01/14/2022 20:48:17 01/15/20 22 01/14/2022 BASIC METAB OLIC PANEL (BMP) eGFR, non- AM 108 mL/mi n/1.7 3 >=60 Not Available [facility] (Lab) [address] [facility], [place], [address], 01/14/2022 20:48:17 03/13/20 22 03/14/2022 CBC WITH DIFFE RENTI AL/PL ATELE T WBC 5.9 x10e3 /uL 3.4-10 .8 Not Available [facility] ([facility]) [address] [place], [address], 03/14/2022 07:14:04 03/13/20 22 03/14/2022 CBC WITH DIFFE RENTI AL/PL ATELE T RBC 4.96 x10e6 /uL 3.77-5 .28 Not Available [facility] ([facility]) [address] [place], [address], 03/14/2022 07:14:04 03/13/20 22 03/14/2022 CBC WITH DIFFE RENTI AL/PL ATELE T hemoglobin 15.5 g/dL 11.1-1 5.9 Not Available [facility] ([facility]) [address] [place], [address], 03/14/2022 07:14:04 03/13/20 22 03/14/2022 CBC WITH DIFFE RENTI AL/PL ATELE T hematocrit 46.1 % 34.0-4 6.6 Not Available [facility] ([facility]) [address] [place], [address], 03/14/2022 07:14:04 03/13/20 22 03/14/2022 CBC WITH DIFFE RENTI AL/PL ATELE T MCV 93 fL 79-97 Not Available [facility] ([facility]) [address] [facility], [place], [address], 03/14/2022 07:14:04 03/13/20 22 03/14/2022 CBC WITH DIFFE RENTI AL/PL ATELE T MCH 31.3 pg 26.6-3 3.0 Not Available [facility] ([facility]) [address] [facility], [place], [address], 03/14/2022 07:14:04 03/13/20 22 03/14/2022 CBC WITH DIFFE RENTI AL/PL ATELE T MCHC 33.6 g/dL 31.5-3 5.7 Not Available [facility] ([facility]) [address] [place], [address], 03/14/2022 07:14:04 03/13/20 22 03/14/2022 CBC WITH DIFFE RENTI AL/PL ATELE T RDW 12.6 % 11.7-1 5.4 Not Available [facility] ([facility]) [address] [place], [address], 03/14/2022 07:14:04 03/13/20 22 03/14/2022 CBC WITH DIFFE RENTI AL/PL ATELE T platelets 292 x10e3 /uL 150-45 0 Not Available [facility] ([facility]) [address] [place], [address], 03/14/2022 07:14:04 03/13/20 22 03/14/2022 CBC WITH DIFFE RENTI AL/PL ATELE T neutrophils 56 % not estab. Not Available [facility] ([facility]) [address] [facility], [place], [address], 03/14/2022 07:14:04 03/13/20 22 03/14/2022 CBC WITH DIFFE RENTI AL/PL ATELE T lymphs 35 % not estab. Not Available [facility] ([facility]) [address] [facility], [place], [address], 03/14/2022 07:14:04 03/13/20 22 03/14/2022 CBC WITH DIFFE RENTI AL/PL ATELE T monocytes 7 % not estab. Not Available [facility] ([facility]) [address] [facility], [place], [address], 03/14/2022 07:14:04 03/13/20 22 03/14/2022 CBC WITH DIFFE RENTI AL/PL ATELE T eos 1 % not estab. Not Available [facility] ([facility]) [address] [facility], [place], [address], 03/14/2022 07:14:04 03/13/20 22 03/14/2022 CBC WITH DIFFE RENTI AL/PL ATELE T basos 1 % not estab. Not Available [facility] ([facility]) [address] [facility], [place], [address], 03/14/2022 07:14:04 03/13/20 22 03/14/2022 CBC WITH DIFFE RENTI AL/PL ATELE T immature cells PROPAGATION MANAGER Not Available [facility] ([facility]) [address] [facility], [place], [address], 03/14/2022 07:14:04 03/13/20 22 03/14/2022 CBC WITH DIFFE RENTI AL/PL ATELE T neutrophils (absolute) 3.4 x10e3 /uL 1.4-7. 0 Not Available [facility] ([facility]) [address] [facility], [place], [address], 03/14/2022 07:14:04 03/13/20 22 03/14/2022 CBC WITH DIFFE RENTI AL/PL ATELE T lymphs (absolute) 2.1 x10e3 /uL 0.7-3. 1 Not Available [facility] ([facility]) [address] [facility], [place], [address], 03/14/2022 07:14:04 03/13/20 22 03/14/2022 CBC WITH DIFFE RENTI AL/PL ATELE T monocytes(ab solute) 0.4 x10e3 /uL 0.1-0. 9 Not Available [facility] ([facility]) [address] [facility], [place], [address], 03/14/2022 07:14:04 03/13/20 22 03/14/2022 CBC WITH DIFFE RENTI AL/PL ATELE T eos (absolute) 0.1 x10e3 /uL 0.0-0. 4 Not Available [facility] ([facility]) [address] [facility], [place], [address], 03/14/2022 07:14:04 03/13/20 22 03/14/2022 CBC WITH DIFFE RENTI AL/PL ATELE T baso (absolute) 0.0 x10e3 /uL 0.0-0. 2 Not Available [facility] ([facility]) [address] [facility], [place], [address], 03/14/2022 07:14:04 03/13/20 22 03/14/2022 CBC WITH DIFFE RENTI AL/PL ATELE T immature granulocytes 0 % not estab. Not Available [facility] ([facility]) [address] [facility], [place], [address], 03/14/2022 07:14:04 03/13/20 22 03/14/2022 CBC WITH DIFFE RENTI AL/PL ATELE T immature grans (abs) 0.0 x10e3 /uL 0.0-0. 1 Not Available [facility] ([facility]) [address] [facility], [place], [address], 03/14/2022 07:14:04 03/13/20 22 03/14/2022 CBC WITH DIFFE RENTI AL/PL ATELE T NRBC PROPAGATION MANAGER Not Available [facility] ([facility]) [address] [facility], [place], [address], 03/14/2022 07:14:04 03/13/20 22 03/14/2022 CBC WITH DIFFE RENTI AL/PL ATELE T hematology comments: PROPAGATION MANAGER Not Available [facility] ([facility]) [address] [facility], [place], [address], 03/14/2022 07:14:04 03/13/20 22 03/14/2022 LIPID PANEL cholesterol, total 203 mg/dL 100-19 9 above high normal Not Available [facility] ([facility]) [address] [facility], [place], [address], 03/14/2022 07:14:06 03/13/20 22 03/14/2022 LIPID PANEL triglyceride s 72 mg/dL 0-149 Not Available [facility] ([facility]) [address] [facility], [place], [address], 03/14/2022 07:14:06 03/13/20 22 03/14/2022 LIPID PANEL HDL cholesterol 76 mg/dL >39 Not Available [facility] ([facility]) [address] [facility], [place], [address], 03/14/2022 07:14:06 03/13/20 22 03/14/2022 LIPID PANEL VLDL cholesterol anthony 13 mg/dL 5-40 Not Available [facility] ([facility]) [address] [place], [address], 03/14/2022 07:14:06 03/13/20 22 03/14/2022 LIPID PANEL LDL chol calc ([facility]) 114 mg/dL 0-99 above high normal Not Available [facility] ([facility]) [address] [facility], [place], [address], 03/14/2022 07:14:06 03/13/2003/14/2022 LIPID PANEL comment: PROPAGATION MANAGER Not Available [facility] ([facility]) [address] [facility], [place], [address], 03/14/2022 07:14:06 11/21/19 23 11/21/2022 TSH TSH 3.210 uIU/m L 0.450- 4.500 Not Available [facility] ([facility]) [address] [facility], [place], [address], 11/21/2022 06:12:42 11/21/19 23 11/20/[address] hemoglobin 15.0 g/dL 11.5-1 5.5 Not Available [facility] [address] [place] [address], [address], 11/20/2022 19:09:11 11/21/19 23 11/20/[address] hematocrit 46.2 % 36.0-4 8.0 Not Available [facility] [address] [place], [address], 11/20/2022 19:09:11 11/21/19 23 11/20/2022 BASIC METAB OLIC PANEL (7) glucose 85 mg/dL 65-99 Not Available [facility] [address] [place], [address], 11/20/2022 19:09:10 11/21/19 23 11/20/2022 BASIC METAB OLIC PANEL (7) BUN 14 mg/dL 8-26 Not Available [facility] [address] [place], [address], 11/20/2022 19:09:10 11/21/19 23 11/20/2022 BASIC METAB OLIC PANEL (7) creatinine 0.64 mg/dL 0.50-1 .40 Not Available [facility] [address] [place], [address], 11/20/2022 19:09:10 11/21/19 23 11/20/2022 BASIC METAB OLIC PANEL (7) eGFR 107 mL/mi n/1.7 3 >=60 Not Available [facility] [address] [place], [address], 11/20/2022 19:09:10 11/21/19 23 11/20/2022 BASIC METAB OLIC PANEL (7) BUN/creatini ne ratio 21.7 Not Available [facility] [address] [place], [address], 11/20/2022 19:09:10 11/21/19 23 11/20/2022 BASIC METAB OLIC PANEL (7) sodium 144.0 mmol/ L 136.0- 144.0 Not Available [facility] [address] [place], [address], 11/20/2022 19:09:10 11/21/19 23 11/20/2022 BASIC METAB OLIC PANEL (7) potassium 4.3 mmol/ L 3.5-5. 3 Not Available [facility] [address] [place], [address], 11/20/2022 19:09:10 11/21/1911/20/2022 BASIC METAB OLIC PANEL (7) chloride 105 mmol/ l 101-11 1 Not Available [facility] [address] [place], [address], 11/20/2022 19:09:10 11/21/1911/20/2022 BASIC METAB OLIC PANEL (7) carbon dioxide, total 29.7 mmol/ L 21.0-3 2.0 Not Available [facility] [address] [place], [address], 11/20/2022 19:09:10 11/21/1911/20/2022 LIPID PANEL cholesterol, total 181.0 mg/dL 140.0- 200.0 Not Available [facility] [address] [place] [address], [address], 11/20/2022 19:09:10 11/21/1911/20/2022 LIPID PANEL triglyceride s 57 mg/dL <=150 Not Available [facility] [address] [place] [address], [address], 11/20/2022 19:09:10 11/21/1911/20/2022 LIPID PANEL HDL cholesterol 70.5 mg/dL 40.0-1 00.0 Not Available [facility] [address] [place], [address], 11/20/2022 19:09:10 11/21/1911/20/2022 LIPID PANEL VLDL cholesterol anthony 11.40 mg/dL 5.00-4 0.00 Not Available [facility] [address] [place] [address], [address], 11/20/2022 19:09:10 11/21/1911/20/2022 LIPID PANEL LDL chol calc ([facility]) 99.5 Not Available [facility] [address] [place], [address], 11/20/2022 19:09:10 11/04/1911/05/2023 LIPID PANEL cholesterol, total 214 mg/dL 100-19 9 above high normal Not Available [facility] ([facility]) [address] [place], [address], 11/05/2023 10:15:17 11/04/1911/05/2023 LIPID PANEL triglyceride s 56 mg/dL 0-149 Not Available [facility] ([facility]) [address] [facility], [place], [address], 11/05/2023 10:15:17 11/04/1911/0411/05/2023 LIPID PANEL HDL cholesterol 76 mg/dL >39 Not Available [facility] ([facility]) [address] [place], [address], 11/05/2023 10:15:17 11/04/19 24 11/05/2023 LIPID PANEL VLDL cholesterol anthony 10 mg/dL 5-40 Not Available [facility] ([facility]) [address] [place], [address], 11/05/2023 10:15:17 11/04/19 24 11/05/2023 LIPID PANEL LDL chol calc ([facility]) 128 mg/dL 0-99 above high normal Not Available [facility] ([facility]) [address] [place], [address], 11/05/2023 10:15:17 11/04/19 24 11/05/2023 COMP. METAB OLIC PANEL (14) glucose 77 mg/dL 70-99 Not Available [facility] ([facility]) [address] [place], [address], 11/05/2023 10:15:18 11/04/19 24 11/05/2023 COMP. METAB OLIC PANEL (14) BUN 13 mg/dL 6-24 Not Available [facility] ([facility]) [address] [place], [address], 11/05/2023 10:15:18 11/04/19 24 11/05/2023 COMP. METAB OLIC PANEL (14) creatinine 0.77 mg/dL 0.57-1 .00 Not Available [facility] ([facility]) [address] [place], [address], 11/05/2023 10:15:18 11/04/19 24 11/05/2023 COMP. METAB OLIC PANEL (14) eGFR 93 mL/mi n/1.7 3 >59 Not Available [facility] ([facility]) [address] [place], [address], 11/05/2023 10:15:18 11/04/19 24 11/05/2023 COMP. METAB OLIC PANEL (14) BUN/creatini ne ratio 17 9-23 Not Available [facility] ([facility]) [address] [facility], [place], [address], 11/05/2023 10:15:18 11/04/19 24 11/05/2023 COMP. METAB OLIC PANEL (14) sodium 140 mmol/ L 134-14 4 Not Available [facility] ([facility]) [address] [facility], [place], [address], 11/05/2023 10:15:18 11/04/19 24 11/05/2023 COMP. METAB OLIC PANEL (14) potassium 3.9 mmol/ L 3.5-5. 2 Not Available [facility] ([facility]) [address] [facility], [place], [address], 11/05/2023 10:15:18 11/04/19 24 11/05/2023 COMP. METAB OLIC PANEL (14) chloride 99 mmol/ L 96-106 Not Available [facility] ([facility]) [address] [facility], [place], [address], 11/05/2023 10:15:18 11/04/19 24 11/05/2023 COMP. METAB OLIC PANEL (14) carbon dioxide, total 26 mmol/ L 20-29 Not Available [facility] ([facility]) [address] [facility], [place], [address], 11/05/2023 10:15:18 11/04/19 24 11/05/2023 COMP. METAB OLIC PANEL (14) calcium 10.1 mg/dL 8.7-10 .2 Not Available [facility] ([facility]) [address] [facility] [place], [address], 11/05/2023 10:15:18 11/04/19 24 11/05/2023 COMP. METAB OLIC PANEL (14) protein, total 7.5 g/dL 6.0-8. 5 Not Available [facility] ([facility]) [address] [place], [address], 11/05/2023 10:15:18 11/04/19 24 11/05/2023 COMP. METAB OLIC PANEL (14) albumin 4.6 g/dL 3.8-4. 9 Not Available [facility] ([facility]) [address] [facility], [place], [address], 11/05/2023 10:15:18 11/04/19 24 11/05/2023 COMP. METAB OLIC PANEL (14) globulin, total 2.9 g/dL 1.5-4. 5 Not Available [facility] ([facility]) [address] [place], [address], 11/05/2023 10:15:18 11/04/19 24 11/05/2023 COMP. METAB OLIC PANEL (14) A/G ratio 1.6 1.2-2. 2 Not Available [facility] ([facility]) [address] [place], [address], 11/05/2023 10:15:18 11/04/19 24 11/05/2023 COMP. METAB OLIC PANEL (14) bilirubin, total 0.4 mg/dL 0.0-1. 2 Not Available [facility] ([facility]) [address] [place], [address], 11/05/2023 10:15:18 11/04/19 24 11/05/2023 COMP. METAB OLIC PANEL (14) alkaline phosphatase 84 IU/L 44-121 Not Available [facility] ([facility]) [address] [facility], [place], [address], 11/05/2023 10:15:18 11/04/19 24 11/05/2023 COMP. METAB OLIC PANEL (14) AST (SGOT) 24 IU/L 0-40 Not Available [facility] ([facility]) [address] [facility], [place], [address], 11/05/2023 10:15:18 11/04/19 24 11/05/2023 COMP. METAB OLIC PANEL (14) ALT (SGPT) 20 IU/L 0-32 Not Available [facility] ([facility]) [address] [facility], [place], [address], 11/05/2023 10:15:18 11/04/19 24 11/05/2023 MICRO SCOPI C EXAMI NATIO N WBC 0-5 /hpf 0-5 Not Available [facility] ([facility]) [address] [facility], [place], [address], 11/05/2023 10:15:19 11/04/19 24 11/05/2023 MICRO SCOPI C EXAMI NATIO N RBC NONE SEEN /hpf 0-2 Not Available [facility] ([facility]) [address] [facility], [place], [address], 11/05/2023 10:15:19 11/04/19 24 11/05/2023 MICRO SCOPI C EXAMI NATIO N epithelial cells (non renal) NONE SEEN /hpf 0-10 Not Available [facility] ([facility]) [address] [facility], [place], [address], 11/05/2023 10:15:19 11/04/19 24 11/05/2023 MICRO SCOPI C EXAMI NATIO N casts NONE SEEN /lpf nonese en Not Available [facility] ([facility]) [address] [facility], [place], [address], 11/05/2023 10:15:19 11/04/19 24 11/05/2023 MICRO SCOPI C EXAMI NATIO N bacteria NONE SEEN nonese en/few Not Available [facility] ([facility]) [address] [facility], [place], [address], 11/05/2023 10:15:19 11/04/19 24 11/05/2023 URINA LYSIS , ROUTI NE specific gravity 1.012 1.005- 1.030 Not Available [facility] ([facility]) [address] [place], [address], 11/05/2023 10:15:20 11/04/19 24 11/05/2023 URINA LYSIS , ROUTI NE pH 6.0 5.0-7. 5 Not Available [facility] ([facility]) [address] [place], [address], 11/05/2023 10:15:20 11/04/19 24 11/05/2023 URINA LYSIS , ROUTI NE urine-color YELLOW yellow Not Available [facility] ([facility]) [address] [place], [address], 11/05/2023 10:15:20 11/04/19 24 11/05/2023 URINA LYSIS , ROUTI NE appearance CLEAR clear Not Available [facility] ([facility]) [address] [place], [address], 11/05/2023 10:15:20 11/04/19 24 11/05/2023 URINA LYSIS , ROUTI NE WBC esterase 1+ negati ve abnormal Not Available [facility] ([facility]) [address] [place], [address], 11/05/2023 10:15:20 11/04/19 24 11/05/2023 URINA LYSIS , ROUTI NE protein NEGATI VE negati ve/tra ce Not Available [facility] ([facility]) [address] [place], [address], 11/05/2023 10:15:20 11/04/19 24 11/05/2023 URINA LYSIS , ROUTI NE glucose NEGATI VE negati ve Not Available [facility] ([facility]) [address] [facility] [place], [address], 11/05/2023 10:15:20 11/04/19 24 11/05/2023 URINA LYSIS , ROUTI NE ketones NEGATI VE negati ve Not Available [facility] ([facility]) [address] [facility], [place], [address], 11/05/2023 10:15:20 11/04/19 24 11/05/2023 URINA LYSIS , ROUTI NE occult blood NEGATI VE negati ve Not Available [facility] ([facility]) [address] [place], [address], 11/05/2023 10:15:20 11/04/19 24 11/05/2023 URINA LYSIS , ROUTI NE bilirubin NEGATI VE negati ve Not Available [facility] ([facility]) [address] [place], [address], 11/05/2023 10:15:20 11/04/19 24 11/05/2023 URINA LYSIS , ROUTI NE urobilinogen ,semi-qn 0.2 mg/dL 0.2-1. 0 Not Available [facility] ([facility]) [address] [place], [address], 11/05/2023 10:15:20 11/04/19 24 11/05/2023 URINA LYSIS , ROUTI NE nitrite, urine NEGATI VE negati ve Not Available [facility] ([facility]) [address] [place], [address], 11/05/2023 10:15:20 11/04/19 24 11/05/2023 URINA LYSIS , ROUTI NE microscopic examination SEE BELOW: Micro scopi c was indic ated and was perfo rmed. Not Available [facility] ([facility]) [address] [place], [address], 11/05/2023 10:15:20 11/04/19 24 11/05/2023 TSH TSH 3.270 uIU/m L 0.450- 4.500 Not Available [facility] ([facility]) [address] [facility], [place], [address], 11/05/2023 10:15:21 11/04/19 24 11/05/2023 CBC WITH DIFFE RENTI AL/PL ATELE T WBC 6.3 x10e3 /uL 3.4-10 .8 Not Available [facility] ([facility]) [address] [facility], [place], [address], 11/05/2023 10:15:22 11/04/19 24 11/05/2023 CBC WITH DIFFE RENTI AL/PL ATELE T RBC 5.10 x10e6 /uL 3.77-5 .28 Not Available [facility] ([facility]) [address] [place], [address], 11/05/2023 10:15:22 11/04/19 24 11/05/2023 CBC WITH DIFFE RENTI AL/PL ATELE T hemoglobin 15.8 g/dL 11.1-1 5.9 Not Available [facility] ([facility]) [address] [place], [address], 11/05/2023 10:15:22 11/04/19 24 11/05/2023 CBC WITH DIFFE RENTI AL/PL ATELE T hematocrit 47.3 % 34.0-4 6.6 above high normal Not Available [facility] ([facility]) [address] [place], [address], 11/05/2023 10:15:22 11/04/19 24 11/05/2023 CBC WITH DIFFE RENTI AL/PL ATELE T MCV 93 fL 79-97 Not Available [facility] ([facility]) [address] [place], [address], 11/05/2023 10:15:22 11/04/19 24 11/05/2023 CBC WITH DIFFE RENTI AL/PL ATELE T MCH 31.0 pg 26.6-3 3.0 Not Available [facility] ([facility]) [address] [facility], [place], [address], 11/05/2023 10:15:22 11/04/19 24 11/05/2023 CBC WITH DIFFE RENTI AL/PL ATELE T MCHC 33.4 g/dL 31.5-3 5.7 Not Available [facility] ([facility]) [address] [facility], [place], [address], 11/05/2023 10:15:22 11/04/19 24 11/05/2023 CBC WITH DIFFE RENTI AL/PL ATELE T RDW 12.5 % 11.7-1 5.4 Not Available [facility] ([facility]) [address] [facility], [place], [address], 11/05/2023 10:15:22 11/04/19 24 11/05/2023 CBC WITH DIFFE RENTI AL/PL ATELE T platelets 321 x10e3 /uL 150-45 0 Not Available [facility] ([facility]) [address] [facility], [place], [address], 11/05/2023 10:15:22 11/04/19 24 11/05/2023 CBC WITH DIFFE RENTI AL/PL ATELE T neutrophils 53 % notest ab. Not Available [facility] ([facility]) [address] [facility], [place], [address], 11/05/2023 10:15:22 11/04/19 24 11/05/2023 CBC WITH DIFFE RENTI AL/PL ATELE T lymphs 38 % notest ab. Not Available [facility] ([facility]) [address] [facility], [place], [address], 11/05/2023 10:15:22 11/04/19 24 11/05/2023 CBC WITH DIFFE RENTI AL/PL ATELE T monocytes 7 % notest ab. Not Available [facility] ([facility]) [address] [facility], [place], [address], 11/05/2023 10:15:22 11/04/19 24 11/05/2023 CBC WITH DIFFE RENTI AL/PL ATELE T eos 2 % notest ab. Not Available [facility] ([facility]) [address] [facility], [place], [address], 11/05/2023 10:15:22 11/04/19 24 11/05/2023 CBC WITH DIFFE RENTI AL/PL ATELE T basos 0 % notest ab. Not Available [facility] ([facility]) [address] [facility], [place], [address], 11/05/2023 10:15:22 11/04/19 24 11/05/2023 CBC WITH DIFFE RENTI AL/PL ATELE T neutrophils (absolute) 3.3 x10e3 /uL 1.4-7. 0 Not Available [facility] ([facility]) [address] [facility], [place], [address], 11/05/2023 10:15:22 11/04/19 24 11/05/2023 CBC WITH DIFFE RENTI AL/PL ATELE T lymphs (absolute) 2.4 x10e3 /uL 0.7-3. 1 Not Available [facility] ([facility]) [address] [facility], [place], [address], 11/05/2023 10:15:22 11/04/19 24 11/05/2023 CBC WITH DIFFE RENTI AL/PL ATELE T monocytes(ab solute) 0.4 x10e3 /uL 0.1-0. 9 Not Available [facility] ([facility]) [address] [facility], [place], [address], 11/05/2023 10:15:22 11/04/19 24 11/05/2023 CBC WITH DIFFE RENTI AL/PL ATELE T eos (absolute) 0.2 x10e3 /uL 0.0-0. 4 Not Available [facility] ([facility]) [address] [place], [address], 11/05/2023 10:15:22 11/04/19 24 11/05/2023 CBC WITH DIFFE RENTI AL/PL ATELE T baso (absolute) 0.0 x10e3 /uL 0.0-0. 2 Not Available [facility] ([facility]) [address] [facility], [place], [address], 11/05/2023 10:15:22 11/04/19 24 11/05/2023 CBC WITH DIFFE RENTI AL/PL ATELE T immature granulocytes 0 % notest ab. Not Available [facility] ([facility]) [address] [place], [address], 11/05/2023 10:15:22 11/04/19 24 11/05/2023 CBC WITH DIFFE RENTI AL/PL ATELE T immature grans (abs) 0.0 x10e3 /uL 0.0-0. 1 Not Available [facility] ([facility]) [address] [place], [address], 11/05/2023 10:15:22 11/04/19 24 11/05/2023 VITAM IN D, 25-HY DROXY vitamin D, 25-hydroxy 53.9 NG/mL 30.0-1 00.0 Vitam in D defic iency has been defin ed by the Insti tute of Medic ine and an Endoc rine Socie ty pract ice guide line as a level of serum 25-OH vitam in D less than 20 ng/mL (1,2) . The Endoc rine Socie ty went on to furth er defin e vitam in D insuf ficie ncy as a level betwe en 21 and 29 ng/mL (2). 1. IOM (Inst itute of Medic ine). 2010. Dieta ry refer ence intak es for calci um and D. [place]ashi ng[place]: The [facility] . 2. Fritz cruz MF, Rafiq ey [place], Sabrina off-F errar i VALERA, et al. Evalu ation , treat ment, and preve ntion of vitam in D defic iency : an Endoc rine Socie ty clini anthony pract ice guide line. JCEM. 2010; 96(7) :1911 -30. Not Available [facility] ([facility]) [address] [facility], [place], [address], 11/05/2023 10:15:23 09/07/19 25 09/08/2024 LIPOP ROTEI N (A) lipoprotein (A) 65.2 nmol/ L <75.0 Note: Value s great er than or equal to 75.0 nmol/ L may indic ate an indep enden t risk facto r for CHD, but must be evalu ated with cauti on when appli ed to non-C aucas eli popul ation s due to the influ ence of danyelle ic facto rs on Lp(a) acros s ethni citie s. Not Available [facility] ([facility]) [address] [facility], [place], [address], 09/08/2024 15:10:38 09/07/19 25 09/08/2024 LIPID PANEL cholesterol, total 190 mg/dL 100-19 9 Not Available [facility] ([facility]) [address] [place], [address], 09/08/2024 15:10:40 09/07/19 25 09/08/2024 LIPID PANEL triglyceride s 55 mg/dL 0-149 Not Available [facility] ([facility]) [address] [place], [address], 09/08/2024 15:10:40 09/07/19 25 09/08/2024 LIPID PANEL HDL cholesterol 71 mg/dL >39 Not Available [facility] ([facility]) [address] [place], [address], 09/08/2024 15:10:40 09/07/19 25 09/08/2024 LIPID PANEL VLDL cholesterol anthony 10 mg/dL 5-40 Not Available [facility] ([facility]) [address] [place], [address], 09/08/2024 15:10:40 09/07/19 25 09/08/2024 LIPID PANEL LDL chol calc ([facility]) 109 mg/dL 0-99 above high normal Not Available [facility] ([facility]) [address] [place], [address], 09/08/2024 15:10:40 09/07/19 25 09/08/2024 COMP. METAB OLIC PANEL (14) glucose 74 mg/dL 70-99 Not Available [facility] ([facility]) [address] [place], [address], 09/08/2024 15:10:41 09/07/19 25 09/08/2024 COMP. METAB OLIC PANEL (14) BUN 12 mg/dL 6-24 Not Available [facility] ([facility]) [address] [place], [address], 09/08/2024 15:10:41 09/07/19 25 09/08/2024 COMP. METAB OLIC PANEL (14) creatinine 0.82 mg/dL 0.57-1 .00 Not Available [facility] ([facility]) [address] [place], [address], 09/08/2024 15:10:41 09/07/19 25 09/08/2024 COMP. METAB OLIC PANEL (14) eGFR 85 mL/mi n/1.7 3 >59 Not Available [facility] ([facility]) [address] [place], [address], 09/08/2024 15:10:41 09/07/19 25 09/08/2024 COMP. METAB OLIC PANEL (14) BUN/creatini ne ratio 15 9-23 Not Available [facility] ([facility]) [address] [facility] [place], [address], 09/08/2024 15:10:41 09/07/19 25 09/08/2024 COMP. METAB OLIC PANEL (14) sodium 143 mmol/ L 134-14 4 Not Available [facility] ([facility]) [address] [facility], [place], [address], 09/08/2024 15:10:41 09/07/19 25 09/08/2024 COMP. METAB OLIC PANEL (14) potassium 4.5 mmol/ L 3.5-5. 2 Speci men recei petar hemol yzed. Value may be incre ased by hemol ysis. Clini anthony corre latio n indic ated. Not Available [facility] ([facility]) [address] [facility], [place], [address], 09/08/2024 15:10:41 09/07/19 25 09/08/2024 COMP. METAB OLIC PANEL (14) chloride 101 mmol/ L 96-106 Not Available [facility] ([facility]) [address] [place], [address], 09/08/2024 15:10:41 09/07/19 25 09/08/2024 COMP. METAB OLIC PANEL (14) carbon dioxide, total 24 mmol/ L 20-29 Not Available [facility] ([facility]) [address] [place], [address], 09/08/2024 15:10:41 09/07/19 25 09/08/2024 COMP. METAB OLIC PANEL (14) calcium 9.8 mg/dL 8.7-10 .2 Not Available [facility] ([facility]) [address] [facility], [place], [address], 09/08/2024 15:10:41 09/07/19 25 09/08/2024 COMP. METAB OLIC PANEL (14) protein, total 7.4 g/dL 6.0-8. 5 Not Available [facility] ([facility]) [address] [place], [address], 09/08/2024 15:10:41 09/07/19 25 09/08/2024 COMP. METAB OLIC PANEL (14) albumin 4.5 g/dL 3.8-4. 9 Not Available [facility] ([facility]) [address] [place], [address], 09/08/2024 15:10:41 09/07/19 25 09/08/2024 COMP. METAB OLIC PANEL (14) globulin, total 2.9 g/dL 1.5-4. 5 Not Available [facility] ([facility]) [address] [facility], [place], [address], 09/08/2024 15:10:41 09/07/19 25 09/08/2024 COMP. METAB OLIC PANEL (14) bilirubin, total 0.4 mg/dL 0.0-1. 2 Not Available [facility] ([facility]) [address] [place], [address], 09/08/2024 15:10:41 09/07/19 25 09/08/2024 COMP. METAB OLIC PANEL (14) alkaline phosphatase 83 IU/L 44-121 Not Available [facility] ([facility]) [address] [facility] [place], [address], 09/08/2024 15:10:41 09/07/19 25 09/08/2024 COMP. METAB OLIC PANEL (14) AST (SGOT) 36 IU/L 0-40 Not Available [facility] ([facility]) [address] [place], [address], 09/08/2024 15:10:41 09/07/19 25 09/08/2024 COMP. METAB OLIC PANEL (14) ALT (SGPT) 23 IU/L 0-32 Not Available [facility] ([facility]) [address], [place], [address], 09/08/2024 15:10:41 09/07/19 25 09/08/2024 MICRO SCOPI C EXAMI NATIO N WBC 0-5 /hpf 0-5 Not Available [facility] ([facility]) [address] [facility], [place], [address], 09/08/2024 15:10:42 09/07/19 25 09/08/2024 MICRO SCOPI C EXAMI NATIO N RBC 0-2 /hpf 0-2 Not Available [facility] ([facility]) [address] [facility], [place], [address], 09/08/2024 15:10:42 09/07/19 25 09/08/2024 MICRO SCOPI C EXAMI NATIO N epithelial cells (non renal) None seen /hpf 0-10 Not Available [facility] ([facility]) [address] [facility], [place], [address], 09/08/2024 15:10:42 09/07/19 25 09/08/2024 MICRO SCOPI C EXAMI NATIO N casts None seen /lpf nonese en Not Available [facility] ([facility]) [address] [facility], [place], [address], 09/08/2024 15:10:42 09/07/19 25 09/08/2024 MICRO SCOPI C EXAMI NATIO N bacteria None seen nonese en/few Not Available [facility] ([facility]) [address] [facility], [place], [address], 09/08/2024 15:10:42 09/07/19 25 09/08/2024 URINA LYSIS , ROUTI NE specific gravity 1.015 1.005- 1.030 Not Available [facility] ([facility]) [address] [facility], [place], [address], 09/08/2024 15:10:43 09/07/19 25 09/08/2024 URINA LYSIS , ROUTI NE pH 6.5 5.0-7. 5 Not Available [facility] ([facility]) [address] [place], [address], 09/08/2024 15:10:43 09/07/19 25 09/08/2024 URINA LYSIS , ROUTI NE urine-color YELLOW yellow Not Available [facility] ([facility]) [address] [facility], [place], [address], 09/08/2024 15:10:43 09/07/19 25 09/08/2024 URINA LYSIS , ROUTI NE appearance CLEAR clear Not Available [facility] ([facility]) [address] [facility], [place], [address], 09/08/2024 15:10:43 09/07/19 25 09/08/2024 URINA LYSIS , ROUTI NE WBC esterase TRACE negati ve abnormal Not Available [facility] ([facility]) [address] [facility], [place], [address], 09/08/2024 15:10:43 09/07/19 25 09/08/2024 URINA LYSIS , ROUTI NE protein NEGATI VE negati ve/tra ce Not Available [facility] ([facility]) [address] [facility], [place], [address], 09/08/2024 15:10:43 09/07/19 25 09/08/2024 URINA LYSIS , ROUTI NE glucose NEGATI VE negati ve Not Available [facility] ([facility]) [address] [place], [address], 09/08/2024 15:10:43 09/07/19 25 09/08/2024 URINA LYSIS , ROUTI NE ketones NEGATI VE negati ve Not Available [facility] ([facility]) [address] [place], [address], 09/08/2024 15:10:43 09/07/19 25 09/08/2024 URINA LYSIS , ROUTI NE occult blood NEGATI VE negati ve Not Available [facility] ([facility]) [address] [place], [address], 09/08/2024 15:10:43 09/07/19 25 09/08/2024 URINA LYSIS , ROUTI NE bilirubin NEGATI VE negati ve Not Available [facility] ([facility]) [address] [place], [address], 09/08/2024 15:10:43 09/07/19 25 09/08/2024 URINA LYSIS , ROUTI NE urobilinogen ,semi-qn 0.2 mg/dL 0.2-1. 0 Not Available [facility] ([facility]) [address] [place], [address], 09/08/2024 15:10:43 09/07/19 25 09/08/2024 URINA LYSIS , ROUTI NE nitrite, urine NEGATI VE negati ve Not Available [facility] ([facility]) [address] [place], [address], 09/08/2024 15:10:43 09/07/19 25 09/08/2024 URINA LYSIS , ROUTI NE microscopic examination SEE BELOW: Micro scopi c was indic ated and was perfo rmed. Not Available [facility] ([facility]) [address] [facility], [place], [address], 09/08/2024 15:10:43 09/07/19 25 09/08/2024 TSH TSH 3.530 uIU/m L 0.450- 4.500 Not Available [facility] ([facility]) [address] [place], [address], 09/08/2024 15:10:44 09/07/19 25 09/08/2024 CBC WITH DIFFE RENTI AL/PL ATELE T WBC 6.1 x10e3 /uL 3.4-10 .8 Not Available [facility] ([facility]) [address] [facility], [place], [address], 09/08/2024 15:10:45 09/07/19 25 09/08/2024 CBC WITH DIFFE RENTI AL/PL ATELE T RBC 4.97 x10e6 /uL 3.77-5 .28 Not Available [facility] ([facility]) [address] [facility], [place], [address], 09/08/2024 15:10:45 09/07/19 25 09/08/2024 CBC WITH DIFFE RENTI AL/PL ATELE T hemoglobin 15.5 g/dL 11.1-1 5.9 Not Available [facility] ([facility]) [address] [place], [address], 09/08/2024 15:10:45 09/07/19 25 09/08/2024 CBC WITH DIFFE RENTI AL/PL ATELE T hematocrit 47.2 % 34.0-4 6.6 above high normal Not Available [facility] ([facility]) [address] [place], [address], 09/08/2024 15:10:45 09/07/19 25 09/08/2024 CBC WITH DIFFE RENTI AL/PL ATELE T MCV 95 fL 79-97 Not Available [facility] ([facility]) [address] [place], [address], 09/08/2024 15:10:45 09/07/19 25 09/08/2024 CBC WITH DIFFE RENTI AL/PL ATELE T MCH 31.2 pg 26.6-3 3.0 Not Available [facility] ([facility]) [address] [place], [address], 09/08/2024 15:10:45 09/07/19 25 09/08/2024 CBC WITH DIFFE RENTI AL/PL ATELE T MCHC 32.8 g/dL 31.5-3 5.7 Not Available [facility] ([facility]) [address] [facility], [place], [address], 09/08/2024 15:10:45 09/07/19 25 09/08/2024 CBC WITH DIFFE RENTI AL/PL ATELE T RDW 12.1 % 11.7-1 5.4 Not Available [facility] ([facility]) [address] [facility], [place], [address], 09/08/2024 15:10:45 09/07/19 25 09/08/2024 CBC WITH DIFFE RENTI AL/PL ATELE T platelets 331 x10e3 /uL 150-45 0 Not Available [facility] ([facility]) [address] [facility], [place], [address], 09/08/2024 15:10:45 09/07/19 25 09/08/2024 CBC WITH DIFFE RENTI AL/PL ATELE T neutrophils 49 % notest ab. Not Available [facility] ([facility]) [address] [facility], [place], [address], 09/08/2024 15:10:45 09/07/19 25 09/08/2024 CBC WITH DIFFE RENTI AL/PL ATELE T lymphs 41 % notest ab. Not Available [facility] ([facility]) [address] [facility], [place], [address], 09/08/2024 15:10:45 09/07/19 25 09/08/2024 CBC WITH DIFFE RENTI AL/PL ATELE T monocytes 7 % notest ab. Not Available [facility] ([facility]) [address] [facility], [place], [address], 09/08/2024 15:10:45 09/07/19 25 09/08/2024 CBC WITH DIFFE RENTI AL/PL ATELE T eos 3 % notest ab. Not Available [facility] ([facility]) [address] [facility], [place], [address], 09/08/2024 15:10:45 09/07/19 25 09/08/2024 CBC WITH DIFFE RENTI AL/PL ATELE T basos 0 % notest ab. Not Available [facility] ([facility]) [address] [facility], [place], [address], 09/08/2024 15:10:45 09/07/19 25 09/08/2024 CBC WITH DIFFE RENTI AL/PL ATELE T neutrophils (absolute) 3.0 x10e3 /uL 1.4-7. 0 Not Available [facility] ([facility]) [address] [facility], [place], [address], 09/08/2024 15:10:45 09/07/19 25 09/08/2024 CBC WITH DIFFE RENTI AL/PL ATELE T lymphs (absolute) 2.5 x10e3 /uL 0.7-3. 1 Not Available [facility] ([facility]) [address] [facility], [place], [address], 09/08/2024 15:10:45 09/07/19 25 09/08/2024 CBC WITH DIFFE RENTI AL/PL ATELE T monocytes(ab solute) 0.5 x10e3 /uL 0.1-0. 9 Not Available [facility] ([facility]) [address] [facility], [place], [address], 09/08/2024 15:10:45 09/07/19 25 09/08/2024 CBC WITH DIFFE RENTI AL/PL ATELE T eos (absolute) 0.2 x10e3 /uL 0.0-0. 4 Not Available [facility] ([facility]) [address] [facility], [place], [address], 09/08/2024 15:10:45 09/07/19 25 09/08/2024 CBC WITH DIFFE RENTI AL/PL ATELE T baso (absolute) 0.0 x10e3 /uL 0.0-0. 2 Not Available [facility] ([facility]) [address] [facility], [place], [address], 09/08/2024 15:10:45 09/07/19 25 09/08/2024 CBC WITH DIFFE RENTI AL/PL ATELE T immature granulocytes 0 % notest ab. Not Available [facility] ([facility]) [address] [facility], [place], [address], 09/08/2024 15:10:45 09/07/19 25 09/08/2024 CBC WITH DIFFE RENTI AL/PL ATELE T immature grans (abs) 0.0 x10e3 /uL 0.0-0. 1 Not Available [facility] ([facility]) [address] [facility], [place], [address], 09/08/2024 15:10:45 01/02/20 23 12/31/2022 MAMMO , scree chucho, bilat eral No observ ation record ed. [address] [facility], [place], [address], 11/04/2023 16:28:23 02/25/20 24 02/24/2024 MAMMO , scree chucho, bilat eral No observ ation record ed. [address], [address], 09/07/2024 16:50:19 Result Notes None recorded. Problems Name Problem SNOMED Code Status Onset Date Resolution Date Notes Provider Name and Address Organization Details Recorded Time Mass of soft tissue 895332157 Active 2019 Kev Molina MD Attn: Samantha lazaro,[address] [facility] [facility], [place], [address], [facility] 22:10:02 Essential hypertension 83834472 Active 2023 Kev Molina MD Attn: Samantha lazaro,[address] [facility], [place], [address], [place] [facility] 5 19:48:35 SARS-CoV-2 mRNA vaccine declined 3943736466 Active 2023 Kev Molina MD Attn: Samantha lazaro,[address] [facility], [place], [address], [place] [facility] 4 16:37:06 Cervical arthritis 893681490 Active Lola [place], [place] [facility] 6 16:31:11 Upper respiratory infection 45833456 Active Lola [place] [facility] 6 16:31:11 Abnormal vaginal bleeding 890154208 Active Lola [place] [facility] 6 16:31:11 Pain 77453325 Active Lola [place] [facility] 6 16:31:11 Problem Notes None recorded. Procedures Surgical History Date Name Laterality Status Provider Name and Address Organization Details Recorded Time 03/12/20 22 Colonoscopy completed Kev Molina MD Attn: Accounting,[address] [facility], [place], [address], [place] [facility] 03/31/2022 11:08:38 11/08/19 21 Date of Last Pap Smear completed Julia Hui [place] [facility] 11/07/2020 08:35:02 08/30/19 06 Incise flexor carpi radialis completed Sue Chawla [place] [facility] 10/24/2014 16:15:13 Caesarean Section completed Kev Molina MD Attn: Accounting,[address] [facility], [place], [address], [place] [facility] 08/01/2014 15:03:52 Tonsillectomy completed Kev Molina MD Attn: Accounting,[address] [place], [address], [place] [facility] 08/01/2014 15:03:52 Imaging Results None recorded. Procedure Notes None recorded. Medical Equipment None Reported. Allergies No known drug allergies Medications Name Sig Start Date Stop Date Status Note LastModified by Organization Details LastModified Time multivitami n tablet Take 1 tablet every day by oral route. 03/13 completed Not Available Not Available Not Available Miralax 17 gram/dose oral powder In a pitcher, mix entire bottle of Miralax in one 64 ounce bottle of yellow or green Gatorade. Beginning at 5:00 PM the evening before the colonosco py, drink 1 8-ounce glass every 15 minutes until completed . Drink 4 glasses of water after finishing this mixture 03/13 completed Not Available Not Available Not Available ibuprofen 800 mg tablet Take 1 tablet 3 times a day by oral route as needed for 30 days. 07/29 completed Not Available Not Available Not Available meloxicam 15 mg tablet Take 1 tablet every day by oral route as directed for 15 days. 2024 active Not Available Not Available Not Avai lable sulfamethox azole 800 mg-trimetho prim 160 mg tablet TAKE 1 TABLET BY MOUTH EVERY 12 HOURS DIRECTED FOR 3 DAYS 09/07 completed Not Available Not Available Not Available acyclovir 800 mg tablet Take 1 tablet 3 times a day by oral route for 10 days. 03/13 completed Not Available Not Available Not Available ofloxacin 0.3 % ear drops INSTILL 10 DROPS (1.5 MG) INTO AFFECTED EAR(S) BY OTIC ROUTE 2 TIMES PER DAY for 10 days 07/03 completed Not Available Not Available Not Available Flagyl 500 mg tablet Take 1 tablet twice a day by oral route for 7 days. 06/20 completed Not Available Not Available Not Available Dulcolax (bisacodyl) 5 mg tablet,nuha yed release At 2:00 PM the day before the colonosco py, take all 4 tablets of Dulcolax by mouth at one time with 8 ounces of water 03/13 completed Not Available Not Available Not Available nitrofurant oin monohydrate /macrocryst als 100 mg capsule TAKE 1 CAPSULE(S ) EVERY 12 HOURS BY ORAL ROUTE FOR 7 DAYS. 06/20 completed Not Available Not Available Not Available Advil 07/29 completed Not Available Not Available Not Available Vitamin 03/13 completed Not Available Not Available Not Available hydrochloro thiazide 12.5 mg tablet TAKE 1 TABLET BY MOUTH ONCE DAILY active Not Available Not Available No t Available Calcium with Vitamin D 600 mg-10 mcg (400 unit) tablet Take 1 tablet twice a day by oral route. 2020 active Not Available Not Available Not Avai lable krill 1,000 mg-omega-3 230 mg-dha 60 mg-epa-phos phlip-astax an capsule Take by oral route. active Not Available Not Available No t Available Vitals Date Recorded Body height Body mass index (BMI) Body weight Heart rate Oxygen saturation Oxygen saturation in Arterial blood by Pulse oximetry Respiratory rate Systolic blood pressure Diastolic blood pressure Provider Name and Address Organization Details Last Updated DateTime 5 149.86 cm 22.9 kg/m2 10191.6 6 g 78 /min 98 % 98 % 14 /min 116 mm[Hg] 80 mm[Hg] Elen Ceballos [place] - [facility] 5 16:37:03 Date Recorded Body height Body mass index (BMI) Body weight Heart rate Oxygen saturation Oxygen saturation in Arterial blood by Pulse oximetry Respiratory rate Systolic blood pressure Diastolic blood pressure Provider Name and Address Organization Details Last Updated DateTime 3 149.86 cm 23.3 kg/m2 83697.5 6 g 80 /min 99 % 99 % 14 /min 112 mm[Hg] 76 mm[Hg] Elen Ceballos [place] - [facility] 3 16:30:35 Date Recorded Body height Body mass index (BMI) Body weight Heart rate Oxygen saturation Oxygen saturation in Arterial blood by Pulse oximetry Respiratory rate Body temperature Systolic blood pressure Diastolic blood pressure Provider Name and Address Organization Details Last Updated DateTime 4 149.86 cm 23.6 kg/m2 82258.3 1 g 94 /min 100 % 100 % 16 /min 98.2 [degF] 120 mm[Hg] 84 mm[Hg] Elen Ceballos [place] - [facility] 4 15:58:35 Date Recorded Body height Body mass index (BMI) Body weight Body temperature Heart rate Systolic blood pressure Diastolic blood pressure Provider Name and Address Organization Details Last Updated DateTime 2 149.86 cm 23.2 kg/m2 36059.7 6 g 96.2 [degF] 75 /min 126 mm[Hg] 85 mm[Hg] Alva Ryder LPN [facility] 2 16:58:23 Date Recorded Body height Body mass index (BMI) Body weight Heart rate Respiratory rate Oxygen saturation Oxygen saturation in Arterial blood by Pulse oximetry Systolic blood pressure Diastolic blood pressure Provider Name and Address Organization Details Last Updated DateTime 2 149.86 cm 22.8 kg/m2 83975.3 7 g 76 /min 14 /min 98 % 98 % 104 mm[Hg] 70 mm[Hg] Elen Ceballos [place] - [facility] 2 15:48:29 Social History Question Answer Notes LastModified by Organizat ion Details LastModified Time Tobacco Smoking Status Never Smoker November RICHMOND Silva, [place] - [facility] 08/01/2014 14:53:13 Do You Have An Advance Directive? No Information not available 10/24/2014 Is Blood Transfusion Acceptable In An Emergency? Yes Information not available 10/24/2014 What Is Your Level Of Caffeine Consumption? Occasional Information not available 08/01/2014 How Much Tobacco Do You Chew? None Information not available 07/09/2017 What Type Of Diet Are You Following? VEGETARIAN Information not available 10/24/2014 Which Illicit Or Recreational Drugs Have You Used? None Information not available 07/09/2017 Education 2 Year College Informatio n not available 10/24/2014 Live Alone Or With Others? With Others Information not available 10/24/2014 Do You Have A Medical Power Of Medical Claims Analyst? Yes [email or web address] Information not available 01/14/2022 What Was The Date Of Your Most Recent Tobacco Screening? 09/07/2024 Information not available 09/07/2024 How Many Children Do You Have? 2 Information not available 10/24/2014 Performs Monthly Self-breast Exam? Yes Information no t available 10/24/2014 Do You Use Protection During Sex? No Information not available 10/24/2014 What Is Your Relationship Status? Information not available 10/24/2014 Seat Belts Used Routinely Yes Information not available 10/24/2014 Are You Sexually Active? Yes Information not available 10/24/2014 How Much Tobacco Do You Smoke? No Information not available 06/21/2017 General Stress Level Low Information not available 07/09/2017 Do You Use Sunscreen Routinely? No Information not available 10/24/2014 Has Tobacco Cessation Counseling Been Provided? Yes Information not available 07/18/2021 On What Date Was Tobacco Cessation Counseling Provided? 07/18/2021 Information not available 07/18/2021 How Many Years Have You Smoked Tobacco? 0 Information not available 06/21/2017 Sex: Unknown Functional Status Question Answer Note LastModified by Organizat ion Details LastModified Time Do you use any illicit or recreational drugs? No Information not available 07/18/2021 Do you or have you ever used any other forms of tobacco or nicotine? No Information not available 07/18/2021 What is your level of alcohol consumption? None Information not available 08/01/2014 Do you or have you ever used smokeless tobacco? Never used smokeless tobacco Information not available 07/03/2019 Are you currently employed? 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 Never used electronic cigarettes Information not available 07/03/2019 What is your exercise level? None Information not available 10/24/2014 Mental Status None recorded. Family History Relationship Description Onset Age of this Age Resolved Age Notes LastModified by Organization Details LastModified Time Mother Diabetes mellitus [email or web address] Not available 2015 16:33:24 Father Malignant neoplasm of prostate Not available 2016 15:44:17 Medical History Condition Response Heart Problems N Other N High Blood Pressure N Breast Cancer N Thyroid Problems N Kidney or Bladder Problems N GI Problems N Lung Disease N Depression N Blood Clots N Acne N Breast Problem N Eating Disorder N Anemia N Anesthesia Complications N Headaches/Migraines N Anxiety Disorder N Diabetes N Ovarian Cancer N Muscle, Joint, or Bone Problems N Blood Transfusions N Arthritis N Seizures/Epilepsy N Polyps N Infertility N Acid Reflux (GERD) N Cancer N Stroke N Abuse/Domestic Violence N Asthma N Endometriosis N High Cholesterol N Hepatitis N Liver Disease N Heart Disease N Fibromyalgia N Pre-Eclampsia N Hypertension N Osteoporosis N Kidney Disease N Gynecological History Statement/Question Response Abnormal Pap N Flow On BCP's at Conception? N STIs/STDs Y HPV Vaccine N Age at Menarche 14 Current Control Method None Age at First Child 27 Sexually Active? N Menses Monthly N Date of Last Pap Smear 11/07/2020 Sexual Problems? N LMP Approximate Obstetrics History GPAL:G 2 P 2 0 0 2 Type Value Multiple Births 0 Full Term 2 Induced 0 Spontaneous 0 Premature 0 Living 2 Ectopics 0 Total 2 Immunizations Vaccine Type Date Status Note Provider Nam e and Address Organization Details Recorded Time COVID-19, mRNA, LNP-S, PF, 30 mcg/0.3 mL dose 1 completed [facility], [place] [facility] 03/05/2021 15:44:47 COVID-19, mRNA, LNP-S, PF, 30 mcg/0.3 mL dose 1 completed [facility] null, [place] [facility] 03/05/2021 15:45:04 COVID-19, mRNA, LNP-S, PF, 30 mcg/0.3 mL dose 2 completed Kev Molina MD Attn: Accounting,[address] [place], [address], [place] [facility] 11/03/2022 16:03:51 Influenza, split virus, quadrivalent, preservative 6 completed Not Available [facility] 09/16/2019 02:43:09 Influenza, MDCK, quadrivalent, PF 2 completed Kev Molina MD Attn: Accounting,[address] [place], [address], [place] [facility] 11/03/2022 16:03:51 Influenza, split virus, quadrivalent, PF 7 completed Not Available [facility] 09/16/2019 02:44:19 Tdap 7 completed Not Available [facility] 09/16/2019 02:40:23 Influenza, split virus, quadrivalent, PF 8 completed Not Available [facility] 09/16/2019 02:40:52 Influenza, split virus, trivalent, PF 4 completed Not Available [facility] 09/16/2019 02:33:25 Influenza, split virus, quadrivalent, preservative 9 completed Not Available [facility] 09/16/2019 02:38:44 Influenza, split virus, quadrivalent, preservative 0 completed Elen Ceballos [place], [place] 06/07/2020 17:10:10 Influenza, split virus, quadrivalent, preservative 1 completed Hilda Kimball [place] [facility] 06/13/2021 16:59:55 Influenza, split virus, quadrivalent, preservative 5 completed Not Available [facility] 09/16/2019 02:41:30 Pneumococcal conjugate PCV20, polysaccharide [id number] conjugate, adjuvant, PF 5 completed Kev Molina MD Attn: Accounting[address] [place], [address], [facility] - [facility] 09/07/2024 18:00:25 Past Encounters Encounter ID Performer Location Encounter Start Date Encounter Closed Date Diagnosis/Indication Diagnosis SNOMED-CT Code Diagnosis ICD10 Code Diagnosis Note [id number] [facility] [address] [place] [id number] 08/01/2014 14:32:14 08/02/2014 18:17:35 Influenza vaccine needed 4263421872 106 General ex amination of patient 914659251 Cervical arthritis 691816051 Upper resp iratory infection 36434987 Conservati ve management , no need for antibiotic s. Denied her request to hold on to a script for antibiotic s [id number] MD David Ho (STATEMENT DISTRIBUTION CLERK) [address] [place] [id number] 10/24/2014 15:29:03 10/24/2014 17:07:02 Gynecologic examination 85303490 Screening mammography 61587872 [id number] MD David Mazariegos (Adult Med) [address] [place] [id number] 06/13/2015 16:26:56 06/17/2015 12:56:10 Administration of influenza vaccine 96493635 Z23 [id number] MD David Mazariegos (Adult Med) [address] [place] [id number] 05/19/2016 15:55:26 05/20/2016 11:54:24 Adult health examination 801851943 Z00.00 Abnormal v aginal bleeding 562956925 N93.9 She has had spotting for 20 days, she may be junito-menop ausal, she should make an appointmen t with her gynecologi st. Thyroid di sorder screening 325261888 Z13.29 Screening for malignant neoplasm of breast 013105753 Z12.31 Influenza vaccine needed 1540058601 106 Z23 [id number] MD David Irizarry (STATEMENT DISTRIBUTION CLERK) [address] [place] [id number] 06/02/2016 16:08:37 06/02/2016 17:27:07 [id number] [facility] [address] [place] [id number] 07/09/2016 15:44:54 07/10/2016 10:09:44 Gynecologic examination 54652701 Z01.886 [id number] Kev Molina MD [facility] (Adult Med) [address] [place] [id number] 06/21/2017 15:52:12 06/21/2017 16:39:37 Screening for malignant neoplasm of breast 946988540 Z12.31 Blood in urine 85093583 R31.9 [id number] MD David Irizarry (STATEMENT DISTRIBUTION CLERK) [address] [place] [id number] 07/09/2017 15:21:35 07/13/2017 11:30:46 Gynecologic examination 78583620 Z01.411 Age appropriat e counseling done. Screening mammography 25 516074 Z12.31 Patient say she has order from PCP Venereal d isease screening 227028633 Z11.3 Lesion of vulva 27424524 6 N90.9 Counseled about possible causes. Advised patient to make an appointmen t before her period when she has the lesions of vulva. Offered vulvar biopsy. She say she wanted to wait until her period and then make an appointmen t at that time. [id number] MD David Irizarry (STATEMENT DISTRIBUTION CLERK) [address] [place] [id number] 0 01/14/2018 16:26:55 01/17/2018 12:57:22 Genital herpes simplex 81530407 A60.9 Counseled thoroughly about it and safe sex. Abnormal u terine bleeding 9424882247 9100 N93.9 Counseled thoroughly about it. OFFERED BLOOD WORK, ULTRASOUND AND emb. Patient refused. Counseled about risk of AUB like endometria l hyperplasi a and endometria l cancer. Patient still refusing. Patient say she does not have insurance. Urine test negative in office today. Venereal d isease screening 036998401 Z11.3 Z20.2 [id number] MD David Irizarry (STATEMENT DISTRIBUTION CLERK) [address] [place] [address] [id number] 0 02/01/2018 15:40:56 02/01/2018 17:19:19 Urinary tract infectious disease 56265554 N39.0 counseled about it. Urine test negative in office today. [id number] [facility] [address] [place] [id number] 06/20/2018 16:57:11 06/21/2018 09:35:13 Administration of influenza vaccine 48354572 Z23 Adult [facility] th examination 736530681 Z00.00 Screening for malignant neoplasm of breast 019569585 Z12.31 Otalgia of right ear 963 3091883 182010 H92.01 [id number] MD David Irizarry (STATEMENT DISTRIBUTION CLERK) [address] [place] [address] [id number] 07/29/2018 16:10:42 08/02/2018 11:06:25 Gynecologic examination 23168342 Z01.411 Age appropriat e counseling done. Venereal d isease screening 364184503 Z11.3 Z20.2 Screening mammography 24 942005 Z12.31 Genital he rpes simplex 18127831 A60.9 Denies any outbreaks. Counseled thoroughly about it and safe sex. Microscopic hematuria 19 5815123 R31.21 Advised to f/u with PCP. [id number] Kev Molina MD [facility] (Adult Med) [address] [place] [id number] 07/03/2019 15:56:20 07/04/2019 08:33:10 Administration of influenza vaccine 85152999 Z23 General ex amination of patient 401103937 Z00.01 Screening for malignant neoplasm of breast 709900379 Z12.31 Ulcerated nasal mucosa 924225491 J34.0 [id number] Salomón Galan MD [facility] (STATEMENT DISTRIBUTION CLERK) [address] [place] [address] [id number] 0 07/25/2019 15:35:36 07/28/2019 12:44:30 Gynecologic examination 06679621 Z01.419 Screening mammography 24 356937 Z12.31 Genital he rpes simplex 81042231 A60.9 [id number] Jone Gutierrez MD [facility] [address] [place] [id number] 10/25/2019 09:36:55 11/08/2019 14:07:27 Chronic rhinitis 21415261 J31.0 pt to clean nose with peroxide and apply neosporin ointment. there are no lesions or infection [id number] Kev Molina MD [facility] (Adult Med) [address] [place] [address] [id number] 06/07/2020 15:51:49 06/10/2020 09:22:55 Administration of influenza vaccine 75611511 Z23 Elevated blood-pressure reading without diagnosis of hypertension 737748848 R03.0 She has had elevated BP readings on her last two visits, she feels it is her stress and the fact that she had to hurry to get here. I am doubtful and I am concerned that she is hypertensi ve.Low salt dietBP check General ex amination of patient 174361057 Z00.01 Screening for malignant neoplasm of breast 527956707 Z12.31 [id number] MD David Mazariegos (Adult Med) [address] [place] [address] [id number] 0 06/28/2020 15:45:46 07/01/2020 07:26:06 Benign essential hypertension 6039253 I10 Start HCTZ, she is very reluctant and may be in denial Mass of soft tissue 4449 47832 R22.9 She still needs an US the small soft tissue mass above the lateral part of the right clavicle. [id number] ERIK JOY (STATEMENT DISTRIBUTION CLERK) [address] [place] [address] [id number] 11/07/2020 08:19:59 11/08/2020 09:35:45 Gynecologic examination 97245467 Z01.419 -clinical breast & pelvic examinatio ns completed today, unremarkab le -cervical cancer screening: Last pap 07/25/2019 Unsatisfac tory for evaluation , HPV-. Repeated today -referral for screening mammogram issued for routine breast cancer screening -Educated osteoporos is prevention including calcium rich diet, weight bearing exercise. Will start supplement . -RTC in 1yr Screening for malignant neoplasm of breast 170630010 Z12.31 Last mammo 08/21/19 BIRADS 1. [id number] MD David Mazariegos (Adult Med) [address] [place] [address] [id number] 06/13/2021 15:58:53 06/17/2021 06:56:53 Administration of influenza vaccine 52587490 Z23 [id number] MD David Mazariegos (Adult Med) [address] [place] [address] [id number] 07/18/2021 15:51:19 07/21/2021 09:42:43 Screening for malignant neoplasm of colon 858246741 Z12.11 General ex amination of patient 641616261 Z00.01 Immunization advised 310 160991 Z71.9 [id number] Pablito Gonzalez DO [facility] [address] [place] [id number] 01/14/2022 16:17:16 01/16/2022 12:50:40 Screening for malignant neoplasm of colon 845103187 Z12.11 [id number] MD David Mazariegos (Adult Med) [address] [place] [address] [id number] 03/13/2022 15:03:00 03/16/2022 17:27:01 Skin lesion 24848960 L98.9 Trigger fi nger of right hand 0739957659 4811397 M65.30 Pain of left hand 481490 7700 64468 M79.642 Erythrocytosis 130838965 D75.1 Labs 07/21/2021 Hb 16 Hct 47 Hyperlipidemia 88035582 E78.5 [id number] MD David Mazariegos (Adult Med) [address] [place] [address] [id number] 11/03/2022 16:00:49 11/05/2022 11:37:04 Disorder of lipid metabolism 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 E78.9 Medication monitoring 39 8120601 Z51.81 Screening for malignant neoplasm of breast 020793167 Z12.31 Essential hypertension 63157968 I10 Menopausal flushing 1984 42844 N95.1 Spider vei n of left lower limb 4649459603 9617750 I78.1 Compressio n stockings SARS-CoV-2 vaccination declined 2965010527 Z28.21 Discussed [id number] MD David Mazariegos (Adult Med) [address] [place] [address] [id number] 11/04/2023 15:16:03 11/08/2023 09:20:08 Screening mammography 21424194 Z12.31 General ex amination of patient 802810064 Z00.01 Pain due t o varicose veins of lower extremity 602734972 I83.819 Essential hypertension 52129856 I10 SARS-CoV-2 mRNA vaccine declined 3609076773 Z28.21 [id number] MD David Mazariegos (Adult Med) [address] [place] [address] [id number] 09/07/2024 16:06:25 09/08/2024 14:11:00 Administration of pneumococcal vaccine 79074677 Z23 Disorder o f lipid metabolism 839635522 E78.9 Visual impairment 310112 003 H54.7 Arthritis 4078491 M19.90 General ex amination of patient 009180349 Z00.01 Weight loss 87936190 R63 .4 Health Concerns Section Related Observation LastModified by Organization Detai ls LastModified Time None Recorded Concern Status LastModified by Organization Details LastModified Time None Recorded Advance Directives Directive N: Payers Insurance Date Sequence Insurance Name Policy Number Policy Dutta Covered Member ID Dutta Member ID Guarantor Name 06/27/2021 1 *SELF PAY* Ra davidson Reardon 08/15/2018 SLIDING FEE SCHEDULE - DISCOUNT Loreto Reardon 02/07/2018 SLIDING FEE SCHEDULE - DISCOUNT Loreto Reardon 12/15/2018 SLIDING FEE SCHEDULE - DISCOUNT Loreto Reardon 06/04/2023 [facility] DEPT Loreto Reardon [id number] Loreto Reardon 06/04/2023 [facility] DE[facility] Loreto Reardon [facility] Olreto Reardon 11/20/2020 SLIDING FEE SCHEDULE - DISCOUNT Loreto Reardon 06/04/2023 [facility] Loreto Reardon [id number] Loreto Reardon 07/03/2019 SLIDING FEE SCHEDULE - DISCOUNT Loreto Reardon 10/15/2021 1 *SELF PAY* Ra davidson Reardon 06/21/2017 SLIDING FEE SCHEDULE - DISCOUNT Loreto Reardon 06/04/2023 1 [facility] [id number] Loreto Reardon [id number] Loreto Reardon 06/04/2023 1 [facility] [id number] Loreto Reardon [id number] Loreto Reardon 09/07/2024 SLIDING FEE SCHEDULE - DISCOUNT Loreto Reardon 11/03/2022 SLIDING FEE SCHEDULE - DISCOUNT Loreto Reardon 06/04/2023 1 [employer] [id number] Loreto Reardon [id number] Loreto Reardon 11/04/2023 SLIDING FEE SCHEDULE - DISCOUNT Loreto Reardon Notes Date Note Type Note Provider Name and Address Organization Details Recorded Time 01/14/2022 text/html Need for screeni ng colonoscopy Pablito Gonzalez DO [address] [place], [address], [facility] 01/14/2022 17:29:22 03/13/2022 text/html Regular check u p and I want to have my hands checked. You have to like pop open.Something puffed upI can't make a fist, I had carpal tunnel surgery done in 2005 Ms Reardon returns, she is a right handed lady who had bilateral CTS several years ago. She has difficulty flexing the 2nd and 4th fingers of the left hand, this movement is limited by pain. She also has to pry open the fingers of the right hand when they are flexed. She also has a soft lesion on her left cheek. In the interim, she had a recent colonoscopy and she was apparently told that it was normal. Kev Molina MD Attn: Accounting, [address] [place], [address], [facility] 03/13/2022 18:57:36 11/03/2022 text/html I have bruises hereLaboratory said you have to have order same day as visitHot flashes are normal? Kev Molina MD Attn: Accounting, [address] [place], [place], [id number], [facility] 11/03/2022 18:37:37 11/04/2023 text/html Hypertension F/UReported bypatient.Associat ed Symptoms:no dizziness; no lightheadedness; no chest pain; no shortness of breath; no palpitations; no edema; no calf pain with exertion Lifestyle:regular exercise; limiting/avoiding salt Medications:taking medications as directed; no side effects from medication Yearly check upI wear these compression socks, I have bruises so much Ms Reardon complains of the pain from the varicosities on her LE (L>R), she noticed them after her last . Kev Molina MD Attn: Accounting[address] [place], [address], [facility] 11/04/2023 18:23:23 09/07/2024 text/html Hypertension F/UReported bypatient.Associat ed Symptoms:no dizziness; no lightheadedness; no chest pain; no shortness of breath; no palpitations; no edema; no calf pain with exertion Lifestyle:regular exercise; limiting/avoiding salt Medications:taking medications as directed; no side effects from medication He gave me shot, it didn't help much Ms Reardon felt better with the Meloxicam than the hand injections by the orthopedic surgeon. Kev Molina MD Attn: Accounting[address] [facility], [place], [address], [facility] 09/07/2024 18:04:34 OBGyn Episode Ob Episode Information Episode Created Date Number of Fetuses Patient Bloodtype Patient rh Status Prepregnancy Weight lbs Domestic Partner Domestic Partner Phone Father Name Principal Java Software Engineer Status 10/24/19 15 1 CLOSED Fetus Data First Name Last Name Admitted to NICU Weight (g) Sex Living Outcome Pediatric Complications Fetus ID Race Codes Race Delivery Type [phone] F Full Term 43[address] Only Deepak Calculation Initial Deepak Date Initial Exam [...] Complications Tubal Sterilization Discharge Date Comments 3 [facility] Discharge Information Feeding Method Contraceptive Method Maternal HG B and HCT Levels Ob Episode Information Episode Created Date Number of Fetuses Patient Bloodtype Patient rh Status Prepregnancy Weight lbs Domestic Partner Domestic Partner Phone Father Name Principal Java Software Engineer Status 10/24/19 15 1 CLOSED Fetus Data First Name Last Name Admitted to NICU Weight (g) Sex Living Outcome Pediatric Complications Fetus ID Race Codes Race Delivery Type 2921.13 248 F Full Term [address] Only Deepak Calculation Initial Deepak Date Initial Exam [...] Complications Tubal Sterilization Discharge Date Comments 9 [facility] Discharge Information Feeding Method Contraceptive Method Maternal HG B and HCT Levels
== END 2025-02-26 15:40 | disposition home or self-care (01) ==
PROVIDERS: PCP Internal Medicine Infectious Disease; Visit Provider Student in an Organized Health Care Education/Training Program
DX: Z12.31 Encounter for screening mammogram for malignant neoplasm of breast (principal)
CPT/HCPCS: 77063; 77067